=== PATIENT | male | born 1945 | race Caucasian/White ===

== ENCOUNTER → 2016-12-26 | Outpatient (CLI) | payer BC ==
[2016-12-26 11:06] LABS: Basophils # (auto) 0.1 uL; Basophils % (auto) 0.9 % (0.0-2.0); Eosinophils # (auto) 0.2 uL; Eosinophils % (auto) 3.4 % (0.0-7.0); Hematocrit 45.3 % (41.0-53.0); Lymphocytes # (auto) 1.2 uL; Lymphocytes % (auto) 18.6 % (10.0-50.0); Mean Corpuscular Hemoglobin 30.8 pg (28.0-32.0); Mean Corpuscular Hgb Conc. 33.2 g/dL (32.0-36.0); Mean Corpuscular Volume 92.8 fL (80.0-100.0); Mean Platelet Volume 8.5 fL (7.4-10.4); Monocytes # (auto) 0.5 uL; Monocytes % (auto) 7.9 % (0.0-12.0); Neutrophils # (auto) 4.3 uL; Neutrophils % (auto) 69.2 % (37.0-80.0); Platelet Count (auto) 205 10^3/uL (140-450); Red Cell Distribution Width 14.1 % (11.6-16.0); White Blood Cell 6.3 10^3/uL (4.4-10.8)
[2016-12-26 11:41] LABS: Albumin 3.4 g/dL (3.4-5.0); BUN/Creatinine Ratio 11.5; Bilirubin, Total 1.1 mg/dL (0.2-1.0); Calcium 8.5 mg/dL (8.5-10.1); Potassium 3.3 mmol/L (3.5-5.1); Total Protein 7.2 g/dL (6.4-8.2)
[2016-12-26 11:44] LABS: Urine Bilirubin Negative (Negative); Urine Blood Negative /uL (Negative); Urine Color Yellow (Yellow); Urine Glucose Normal (Normal); Urine Ketone Negative (Negative); Urine Nitrite Negative (Negative); Urine RBC <1 /hpf (0 - 3); Urine Squamous Epithelial Cell FEW /hpf (<5); Urine pH 6.5 (5.0-8.0)
== END | disposition home or self-care (01) ==
LOC: LAB 10:45
DX: I10 Essential (primary) hypertension (principal); Z12.11 Encounter for screening for malignant neoplasm of colon; F95.2 Tourette's disorder; R73.9 Hyperglycemia, unspecified
CPT/HCPCS: 36415; 80053; 80061; 81001; 82270; 83036; 84443; 85025; 85652

== ENCOUNTER → 2017-01-07 | Outpatient (CLI) | payer BC | END | disposition home or self-care (01) | LOC: XY 13:34 | PROVIDERS: ATTEND Internal Medicine | DX: I70.203 Unspecified atherosclerosis of native arteries of extremities, bilateral legs (principal); I77.1 Stricture of artery; R53.1 Weakness | CPT/HCPCS: 93923; 93925 ==

== ENCOUNTER → 2017-04-01 | Outpatient (CLI) | payer BC | END | disposition home or self-care (01) | LOC: LAB 10:50 | PROVIDERS: ATTEND Internal Medicine | DX: I73.9 Peripheral vascular disease, unspecified (principal) | CPT/HCPCS: 36415; 82565; 84520 ==

== ENCOUNTER → 2018-01-09 | Outpatient (CLI) | payer BC ==
[2018-01-09 12:56] LABS: Basophils # (auto) 0 uL; Basophils % (auto) 0.7 % (0.0-2.0); Eosinophils # (auto) 0.1 uL; Eosinophils % (auto) 2.4 % (0.0-7.0); Hematocrit 44.1 % (41.0-53.0); Hemoglobin 14.7 g/dL (13.5-17.5); Lymphocytes # (auto) 0.8 uL; Lymphocytes % (auto) 13.5 % (10.0-50.0); Mean Corpuscular Hemoglobin 30.9 pg (28.0-32.0); Mean Corpuscular Hgb Conc. 33.3 g/dL (32.0-36.0); Mean Corpuscular Volume 93.1 fL (80.0-100.0); Monocytes # (auto) 0.4 uL; Monocytes % (auto) 7.1 % (0.0-12.0); Neutrophils # (auto) 4.3 uL; Neutrophils % (auto) 76.3 % (37.0-80.0); Nucleated Red Blood Cells % 0.1 %; Platelet Count (auto) 183 10^3/uL (140-450); Red Blood Cells 4.74 10^6/uL (4.5-5.90); Red Cell Distribution Width 14.3 % (11.8-14.3); White Blood Cell 5.7 10^3/uL (4.4-10.8)
[2018-01-09 12:58] LABS: Urine Bacteria FEW /hpf (None Seen); Urine Blood Negative /uL (Negative); Urine Mucus FEW (None Seen); Urine Specific Gravity 1.025 (1.001-1.035); Urine WBC <1 /hpf (0 - 3)
[2018-01-09 13:39] LABS: Albumin 3.3 g/dL (3.4-5.0); BUN/Creatinine Ratio 8.3; Bilirubin, Total 0.6 mg/dL (0.2-1.0); Calcium 8.4 mg/dL (8.5-10.1); Potassium 3.2 mmol/L (3.5-5.1); Total Protein 6.8 g/dL (6.4-8.2)
== END | disposition home or self-care (01) ==
LOC: LAB 11:23
PROVIDERS: ATTEND Physician Assistant
DX: I12.9 Hypertensive chronic kidney disease with stage 1 through stage 4 chronic kidney disease, or unspecified chronic kidney disease (principal); E11.22 Type 2 diabetes mellitus with diabetic chronic kidney disease; N18.2 Chronic kidney disease, stage 2 (mild); E78.4 Other hyperlipidemia; F95.2 Tourette's disorder
CPT/HCPCS: 36415; 80053; 80061; 81001; 83036; 85025

== ENCOUNTER → 2019-01-05 | Outpatient (CLI) | payer BC ==
[~2019-01-05] MED LIST: ATOR10TA52 PO; CILO100T PO; DOXA4TAB40 PO; HYDR25TA4 PO; OXYC325T14 PO
[2019-01-05 16:15] VITALS: BP 130/88
--- NOTE | 2019-01-05 16:15 | NUR ---
ASSISTED PT. AND TO CLINIC FROM DR. SÁNCHEZ'S OFFICE FOR BILAT. LOWER EXT. UNNA BOOT APPLICATION PER MD ORDER. RECENT BILAT. PERIPHERAL ANGIOPLAST WITH STENT. PT. FULLY AMBULATORY WITH CONCOMITTANT HX OF MORBID OBESITY AND LUMBAR FRACTURE MANY YEARS AGO. PT. EDUCATION DIRECTED TO PT. AND SPOUSE. LOWER CALVES WITH MILDLY PITTING EDEMA AND DORSALIS PEDIS PULSES PALPATED.
--- NOTE | 2019-01-05 16:35 | NUR ---
EDE. DAYANAA BOOTS APPLIED PER MD ORDER. PT. TOLERATED PROCEDURES WELL, WITH INSTRUCTIONS TO KEEP LEGS ELEVATED AT HOME. 35-40 MM/HG LOW PRESSURE WRAPPING IN EFFECT. ABLE TO PUT SHOES BACK ON.
[2019-01-05 16:50] VITALS: BP 135/78
--- NOTE | 2019-01-05 16:50 | NUR ---
Discharge Instructions See e-MAR for any mediations given with this visit. Patient education given on disease process. Patient verbalized understanding. Previous labs reviewed. Patient discharged in stable condition with after care instructions and follow up appointment. PT. TO RTC ON FRIDAY AT 1PM FOR CHANGE OF UNNA BOOTS . PT. GIVEN CLINIC NUMBER IF ANY PROBLEMS OCCUR. AMBULATED TO POV WITH AT THIS TIME.
== END | disposition home or self-care (01) ==
LOC: CHF HDHVI 16:55
PROVIDERS: ATTEND Internal Medicine
DX: E66.01 Morbid (severe) obesity due to excess calories (principal); I73.9 Peripheral vascular disease, unspecified; I11.0 Hypertensive heart disease with heart failure; I50.9 Heart failure, unspecified
CPT/HCPCS: G0463

== ENCOUNTER → 2019-01-08 | Outpatient (CLI) | payer BC ==
[2019-01-08 12:55] VITALS: BP 120/58
[2019-01-08 13:20] VITALS: BP 130/69
--- NOTE | 2019-01-08 13:20 | NUR ---
[facility] CLINIC Discharge Instructions See e-MAR for any mediations given with this visit. Patient education given on disease process. Patient verbalized understanding. Previous labs reviewed. Patient discharged in stable condition with after care instructions and follow up appointment ON FRIDAY. NOTE BLE FAVIAN BOOTS APPLIED.
== END | disposition home or self-care (01) ==
LOC: CHF HDHVI 12:53
PROVIDERS: ATTEND Internal Medicine Cardiovascular Disease
DX: I87.2 Venous insufficiency (chronic) (peripheral) (principal); R60.0 Localized edema
CPT/HCPCS: G0463

== ENCOUNTER → 2019-01-11 | Outpatient (CLI) | payer BC ==
[2019-01-11 12:57] VITALS: BP 114/54
--- NOTE | 2019-01-11 12:57 | NUR ---
CHF PT ARRIVED AT CHF CLINIC FOR BILATERAL UNNA BOOT WRAPS. PT A/O X 3 V/S OBTAINED
--- NOTE | 2019-01-11 13:15 | NUR ---
Wound Care Wound care provided per MD order. Patient tolerated well and verbalized dressing care instructions. Follow up in clinic as directed. See e-MAR for medications given during this visit. BILATERAL UNNA BOOTS APPLIED
--- NOTE | 2019-01-11 13:35 | NUR ---
Discharge Instructions See e-MAR for any mediations given with this visit. Patient education given on disease process. Patient verbalized understanding. Previous labs reviewed. Patient discharged in stable condition with after care instructions and follow up appointment.
== END | disposition home or self-care (01) ==
LOC: CHF HDHVI 12:58
PROVIDERS: ATTEND Internal Medicine Cardiovascular Disease
DX: R60.0 Localized edema (principal); I11.0 Hypertensive heart disease with heart failure; I50.9 Heart failure, unspecified
CPT/HCPCS: G0463

== ENCOUNTER → 2019-01-15 | Outpatient (CLI) | payer BC ==
[2019-01-15 13:00] VITALS: BP 109/61
[2019-01-15 13:30] VITALS: BP 117/74
--- NOTE | 2019-01-15 13:30 | NUR ---
CHF CLINIC Discharge Instructions See e-MAR for any mediations given with this visit. Patient education given on disease process. Patient verbalized understanding. Previous labs reviewed. Patient discharged in stable condition with after care instructions and follow up appointment on Friday. Note Bilat edgar boots applied to lower extremities
== END | disposition home or self-care (01) ==
LOC: CHF HDHVI 12:54
PROVIDERS: ATTEND Internal Medicine Cardiovascular Disease
DX: I73.9 Peripheral vascular disease, unspecified (principal)
CPT/HCPCS: G0463

== ENCOUNTER → 2019-01-18 | Outpatient (CLI) | payer BC ==
[2019-01-18 13:00] VITALS: BP 111/62
[2019-01-18 13:25] VITALS: BP_SYST 110; BP_SYST 112; BP_DIAS 63
--- NOTE | 2019-01-18 13:25 | NUR ---
FAVIAN BOOTS APPLIED BILATERALLY. IN ATTENDANCE. TOLERATED WELL. Discharge Instructions See e-MAR for any mediations given with this visit. Patient education given on disease process. Patient verbalized understanding. Previous labs reviewed. Patient discharged in stable condition with after care instructions and follow up appointment.
== END | disposition home or self-care (01) ==
LOC: CHF HDHVI 13:06
PROVIDERS: ATTEND Internal Medicine
DX: E87.70 Fluid overload, unspecified (principal)
CPT/HCPCS: G0463

== ENCOUNTER → 2019-01-22 | Outpatient (CLI) | payer BC ==
[2019-01-22 13:30] VITALS: BP 100/60
[2019-01-22 13:50] VITALS: BP 108/56
--- NOTE | 2019-01-22 13:50 | NUR ---
IN TO CLINIC FOR WOUND CARE TO BILATERAL LEGS. FAVIAN BOOTS REMOVED AND THEN REAPPLIED. IN ATTENDANCE. WITHOUT DISTRESS OR DISCOMFORT. VS WNL. DISCHARGED TO CARE OF .
== END | disposition home or self-care (01) ==
LOC: CHF HDHVI 12:55
PROVIDERS: ATTEND Internal Medicine Cardiovascular Disease
DX: I89.0 Lymphedema, not elsewhere classified (principal); E87.70 Fluid overload, unspecified
CPT/HCPCS: G0463

== ENCOUNTER → 2019-01-26 | Outpatient (CLI) | payer BC ==
[2019-01-26 12:51] VITALS: BP 129/61
--- NOTE | 2019-01-26 12:51 | NUR ---
CHF PT ARRIVED TO [facility] FOR UNNA BOOT CHANGE. PT A/O X 3 V/S OBTAINED Addendum: 01/26/19 at 1435 by OSMAR MORALES RN RN TX PTS LEGS SLIGHTLY DISCOLORED, NO PAIN,
[2019-01-26 13:08] VITALS: BP 125/63
== END | disposition home or self-care (01) ==
LOC: CHF HDHVI 13:05
PROVIDERS: ATTEND Internal Medicine Cardiovascular Disease
DX: R60.0 Localized edema (principal)
CPT/HCPCS: G0463

== ENCOUNTER → 2019-01-29 | Outpatient (CLI) | payer BC ==
[2019-01-29 12:53] VITALS: BP 125/72
--- NOTE | 2019-01-29 13:20 | NUR ---
IN TO CLINIC FOR WOUND CARE TO BILATERAL LOWER EXTREMITIES. FAVIAN BOOTS REMOVED AND REAPPLIED. TOLERATED WELL. WITHOUT DISTRESS. IN ATTENDANCE. DISCHARGED TO SELF CARE.
== END | disposition home or self-care (01) ==
LOC: CHF HDHVI 13:20
PROVIDERS: ATTEND Internal Medicine Cardiovascular Disease
DX: I89.0 Lymphedema, not elsewhere classified (principal)
CPT/HCPCS: G0463

== ENCOUNTER → 2019-02-02 | Outpatient (CLI) | payer BC ==
[2019-02-02 13:50] VITALS: BP 111/87
[2019-02-02 14:25] VITALS: BP 111/87
--- NOTE | 2019-02-02 14:25 | NUR ---
FAVIAN BOOTS APPLIED BILATERALLY. SKIN CLEAN DRY AND INTACT. TOLERATED WELL. IN ATTENDANCE. DISCHARGED TO CARE OF IN NO DISTRESS OR DISCOMFORT AT TIME OF DISCHARGE.
== END | disposition home or self-care (01) ==
LOC: Rad HDHVI 12:50
PROVIDERS: ATTEND Internal Medicine
DX: I82.0 Budd-Chiari syndrome (principal); I11.0 Hypertensive heart disease with heart failure; I50.9 Heart failure, unspecified; I89.0 Lymphedema, not elsewhere classified
CPT/HCPCS: 93970; G0463

== ENCOUNTER → 2019-02-05 | Outpatient (CLI) | payer BC ==
[2019-02-05 13:00] VITALS: BP 118/63
--- NOTE | 2019-02-05 13:00 | NUR ---
CHF PT ARRIVED AT CHF CLINIC FOR UNNA BOOT CHANGE TO LOWER EXTREMETIES. V/S OBTAINED 0 DISTRESS
[2019-02-05 13:22] VITALS: BP 125/57
== END | disposition home or self-care (01) ==
LOC: CHF HDHVI 13:08
PROVIDERS: ATTEND Internal Medicine Cardiovascular Disease
DX: I73.9 Peripheral vascular disease, unspecified (principal)
CPT/HCPCS: G0463

== ENCOUNTER → 2019-02-09 | Outpatient (CLI) | payer BC ==
--- NOTE | 2019-02-09 14:40 | NUR ---
CHF PT ARRIVED TO THE CHF CLINIC FOR UNNA BOOT APPLICATION. A.O X 3 0 DISTRESS. V/S STABLE
[2019-02-09 14:49] VITALS: BP 136/59
[2019-02-09 15:09] VITALS: BP 120/64
--- NOTE | 2019-02-09 15:09 | NUR ---
Discharge Instructions See e-MAR for any mediations given with this visit. Patient education given on disease process. Patient verbalized understanding. Patient discharged in stable condition with after care instructions and follow up appointment.
== END | disposition home or self-care (01) ==
LOC: CHF HDHVI 15:24
PROVIDERS: ATTEND Internal Medicine Cardiovascular Disease
DX: I73.9 Peripheral vascular disease, unspecified (principal)
CPT/HCPCS: G0463

== ENCOUNTER → 2019-02-15 | Outpatient (CLI) | payer BC ==
--- NOTE | 2019-02-15 13:00 | NUR ---
CHF PT ARRIVED AT THE CHF CLINIC FOR WEEKLY UNNA BOOT THERAPY. PT A/O X 3 0 DISTRESS. V/S OBTAINED
--- NOTE | 2019-02-15 13:30 | NUR ---
IV insertion IV access obtained, via clean sterile technique by inserting 22 gauge catheter at after attempt(s). IV secured properly. No trauma to site. Patient tolerated procedure well. Addendum: 02/15/19 at 1435 by OSMAR MORALES RN RN NC WRONG PATIENT
[2019-02-15 14:30] VITALS: BP 112/70
[2019-02-15 16:15] LABS: Basophils # (auto) 0 uL; Basophils % (auto) 0.9 % (0.0-2.0); Eosinophils # (auto) 0.2 uL; Hematocrit 44.6 % (41.0-53.0); Hemoglobin 14.6 g/dL (13.5-17.5); Lymphocytes # (auto) 0.9 uL; Lymphocytes % (auto) 17.1 % (10.0-50.0); Mean Corpuscular Hemoglobin 30.4 pg (28.0-32.0); Mean Corpuscular Hgb Conc. 32.8 g/dL (32.0-36.0); Mean Corpuscular Volume 92.7 fL (80.0-100.0); Monocytes # (auto) 0.5 uL; Monocytes % (auto) 9.3 % (0.0-12.0); Neutrophils # (auto) 3.7 uL; Neutrophils % (auto) 69.7 % (37.0-80.0); Platelet Count (auto) 158 10^3/uL (140-450); Red Blood Cells 4.81 10^6/uL (4.5-5.90); White Blood Cell 5.4 10^3/uL (4.4-10.8)
[2019-02-15 16:32] LABS: Albumin 3.4 g/dL (3.4-5.0); Calcium 8.3 mg/dL (8.5-10.1); Magnesium 2.3 mg/dL (1.6-2.6); Potassium 3.9 mmol/L (3.5-5.1)
[2019-02-15 16:34] LABS: BUN/Creatinine Ratio 15.8
[2019-02-15 16:37] LABS: Bilirubin, Total 0.9 mg/dL (0.2-1.0)
== END | disposition home or self-care (01) ==
LOC: CHF HDHVI 13:09
PROVIDERS: ATTEND Internal Medicine Cardiovascular Disease
DX: I11.0 Hypertensive heart disease with heart failure (principal); I50.9 Heart failure, unspecified; E83.40 Disorders of magnesium metabolism, unspecified; D64.9 Anemia, unspecified; I73.9 Peripheral vascular disease, unspecified
CPT/HCPCS: 36415; 80053; 83735; 83880; 85025; G0463

== ENCOUNTER → 2019-02-19 | Outpatient (CLI) | payer BC ==
[2019-02-19 13:15] VITALS: BP 118/85
[2019-02-19 13:47] VITALS: BP 115/66
--- NOTE | 2019-02-19 13:47 | NUR ---
IN FOR FAVIAN BOOT APPLICATION TO BILATERAL LEGS.
== END | disposition home or self-care (01) ==
LOC: CHF HDHVI 13:09
PROVIDERS: ATTEND Internal Medicine Cardiovascular Disease
DX: E87.70 Fluid overload, unspecified (principal)
CPT/HCPCS: G0463

== ENCOUNTER → 2019-02-23 | Outpatient (CLI) | payer BC ==
[2019-02-23 13:00] VITALS: BP 112/64
[2019-02-23 13:35] VITALS: BP 123/58
== END | disposition home or self-care (01) ==
LOC: CHF HDHVI 13:01
PROVIDERS: ATTEND Internal Medicine Cardiovascular Disease
DX: I25.10 Atherosclerotic heart disease of native coronary artery without angina pectoris (principal); I11.0 Hypertensive heart disease with heart failure; I50.31 Acute diastolic (congestive) heart failure; E87.70 Fluid overload, unspecified
CPT/HCPCS: G0463

== ENCOUNTER → 2019-02-26 | Outpatient (CLI) | payer BC ==
[2019-02-26 13:00] VITALS: BP 115/61
--- NOTE | 2019-02-26 13:33 | NUR ---
CHF FAVIAN BOOTS APPLIED BILATERALLY . IN ATTENDANCE . TOLERATED WELL. DISCHARGED TO SELF CARE IN NO DISTRESS.
[2019-02-26 13:35] VITALS: BP 102/67
== END | disposition home or self-care (01) ==
LOC: CHF HDHVI 13:01
PROVIDERS: ATTEND Internal Medicine Cardiovascular Disease
DX: I11.0 Hypertensive heart disease with heart failure (principal); I50.9 Heart failure, unspecified; E87.70 Fluid overload, unspecified
CPT/HCPCS: G0463

== ENCOUNTER → 2019-03-05 | Outpatient (CLI) | payer BC ==
[2019-03-05 13:00] VITALS: BP 105/62
[2019-03-05 13:57] VITALS: BP 100/57
--- NOTE | 2019-03-05 13:57 | NUR ---
CHF CLINIC Discharge Instructions See e-MAR for any mediations given with this visit. Patient education given on disease process. Patient verbalized understanding. Previous labs reviewed. Patient discharged in stable condition with after care instructions and follow up appointment. NOTE BILAT FAVIAN BOOTS APPLIED.
== END | disposition home or self-care (01) ==
LOC: CHF HDHVI 13:03
PROVIDERS: ATTEND Internal Medicine Cardiovascular Disease
DX: I87.2 Venous insufficiency (chronic) (peripheral) (principal)
CPT/HCPCS: G0463

== ENCOUNTER → 2019-03-12 | Outpatient (CLI) | payer BC ==
[~2019-03-12] MED LIST changes: +MVI in SODIUM CHLORIDE 0.9% 1,010 ML ONE; +MVI in SODIUM CHLORIDE 0.9% 500 ML IVB ONE
--- NOTE | 2019-03-12 12:10 | NUR ---
PT. TO CHF CLINIC FOR EVAL AND TX. PT. WITH C/O LOOSE STOOLS/DIARRHEA X 3 DAYS. PT. HAS HAD A 13 LB. WT. LOSS SINCE STARTING CLINIC. DENIES FEVER. MODIFIED ORDER FOR BANANA BAG RECEIVED WITH LAB ORDERS ALSO. ORDERS RECEIVED AND CARRIED OUT.
--- NOTE | 2019-03-12 12:40 | NUR ---
PT. STATES HE DOESN'T HAVE ENOUGH TIME FOR IV HYDRATION DUE TO ANOTHER MD APPT. MD ADVISED WITH LAB ORDERS AND SPECIFIC INSTRUCTIONS FOR P.O. HYDRATION WITH MODIFIED BRAT DIET EXPLAINED TO PT.
--- NOTE | 2019-03-12 13:00 | NUR ---
BILAT. UNNA BOOTS APPLIED PER MD INSTRUCTIONS, WITH GOOD PULSES PALPATED DISTALLY.PT TOLERATED PROCEDURE WELL.
--- NOTE | 2019-03-12 13:20 | NUR ---
LABS DRAWN AND SENT PER MD ORDER.
[2019-03-12 13:30] VITALS: BP 113/62
--- NOTE | 2019-03-12 13:31 | NUR ---
NOTE: UNNA BOOTS TO BILAT. LOWER EXT., CHF VISIT. BANANA BAG NOT ADMINISTERED AND WASTED.
[2019-03-12 15:56] LABS: BUN/Creatinine Ratio 10.8; Calcium 8.7 mg/dL (8.5-10.1); Potassium 3.4 mmol/L (3.5-5.1)
[2019-03-12 16:22] LABS: Basophils # (auto) 0 uL; Basophils % (auto) 0.9 % (0.0-2.0); Eosinophils # (auto) 0.1 uL; Eosinophils % (auto) 1.8 % (0.0-7.0); Hematocrit 46.3 % (41.0-53.0); Hemoglobin 15.4 g/dL (13.5-17.5); Lymphocytes # (auto) 0.7 uL; Lymphocytes % (auto) 12.6 % (10.0-50.0); Mean Corpuscular Hemoglobin 30.7 pg (28.0-32.0); Mean Corpuscular Hgb Conc. 33.3 g/dL (32.0-36.0); Mean Corpuscular Volume 92.2 fL (80.0-100.0); Monocytes # (auto) 0.4 uL; Monocytes % (auto) 7.3 % (0.0-12.0); Neutrophils # (auto) 4.2 uL; Neutrophils % (auto) 77.4 % (37.0-80.0); Platelet Count (auto) 162 10^3/uL (140-450); Red Blood Cells 5.02 10^6/uL (4.5-5.90); Red Cell Distribution Width 14.6 % (11.8-14.3); White Blood Cell 5.5 10^3/uL (4.4-10.8)
== END | disposition home or self-care (01) ==
LOC: CHF HDHVI 13:07
PROVIDERS: ATTEND Internal Medicine Cardiovascular Disease
DX: D64.9 Anemia, unspecified (principal); I11.0 Hypertensive heart disease with heart failure; I50.9 Heart failure, unspecified; E66.9 Obesity, unspecified; K52.9 Noninfective gastroenteritis and colitis, unspecified; I73.9 Peripheral vascular disease, unspecified
CPT/HCPCS: 36415; 80048; 85025; G0463; J3411; J3475

== ENCOUNTER → 2019-03-19 | Outpatient (CLI) | payer BC ==
[~2019-03-19] MED LIST changes: -DOXA4TAB40 PO; +DOXA4TAB5 PO; -MVI in SODIUM CHLORIDE 0.9% 1,010 ML ONE; -MVI in SODIUM CHLORIDE 0.9% 500 ML IVB ONE
[2019-03-19 13:00] VITALS: BP 113/62
[2019-03-19 13:42] VITALS: BP 109/64
--- NOTE | 2019-03-19 13:42 | NUR ---
IN TO CLINIC FOR FOLLOWUP WITH FAVIAN BOOTS TO BILATERAL LEGS. WITHOUT DISTRESS. AFFECT CHEERFUL AND COOPERATIVE. IN ATTENDANCE. FAVIAN BOOTS APPLIED AND TOLERATED WELL. DISCHARGED TO SELF CARE WITH IN ATTENDANCE.
== END | disposition home or self-care (01) ==
LOC: CHF HDHVI 13:07
PROVIDERS: ATTEND Internal Medicine Cardiovascular Disease
DX: E87.70 Fluid overload, unspecified (principal); I11.0 Hypertensive heart disease with heart failure; I50.9 Heart failure, unspecified
CPT/HCPCS: G0463

== ENCOUNTER → 2019-03-26 | Outpatient (CLI) | payer BC ==
[2019-03-26 13:00] VITALS: BP 126/69
[2019-03-26 13:30] VITALS: BP 124/67
--- NOTE | 2019-03-26 13:30 | NUR ---
CHF CLINIC Discharge Instructions See e-MAR for any mediations given with this visit. Patient education given on disease process. Patient verbalized understanding. Previous labs reviewed. Patient discharged in stable condition with after care instructions and follow up appointment. NOTE BILAT FAVIAN BOOTS APPLIED
== END | disposition home or self-care (01) ==
LOC: CHF HDHVI 12:59
PROVIDERS: ATTEND Internal Medicine
DX: I87.2 Venous insufficiency (chronic) (peripheral) (principal)
CPT/HCPCS: G0463

== ENCOUNTER → 2019-04-02 | Outpatient (CLI) | payer BC ==
[2019-04-02 13:00] VITALS: BP 129/66
--- NOTE | 2019-04-02 14:00 | NUR ---
IN FOR FAVIAN BOOTS TO BILATERAL LOWER EXTREMITIES. EDUCATION REGARDING DIET AND FLUID MANAGEMENT GIVEN BY QUINTIN VARGAS TO PT AND PATIENTS . PT VERBALIZES THAT HE IS ACTIVELY DIETING AND MANAGING HIS DIET INTAKE. IMPREGNATED GAUZE APPLIED TO BILATERAL LOWER EXTREMITIES AND THEN COVERED WITH COBAN AND STOCKINGNETTE. TOLERATED WELL. DISCHARGED TO SELF CARE WITH IN ATTENDANCE.
[2019-04-02 14:12] VITALS: BP 108/66
== END | disposition home or self-care (01) ==
LOC: CHF HDHVI 13:02
PROVIDERS: ATTEND Internal Medicine Cardiovascular Disease
DX: I11.0 Hypertensive heart disease with heart failure (principal); I50.31 Acute diastolic (congestive) heart failure; E87.70 Fluid overload, unspecified
CPT/HCPCS: G0463

== ENCOUNTER → 2019-04-13 | Outpatient (CLI) | payer BC ==
[2019-04-13 12:55] VITALS: BP 124/69
[2019-04-13 13:17] VITALS: BP 120/59
--- NOTE | 2019-04-13 13:17 | NUR ---
CHF CLINIC Discharge Instructions See e-MAR for any mediations given with this visit. Patient education given on disease process. Patient verbalized understanding. Previous labs reviewed. Patient discharged in stable condition with after care instructions and follow up appointment ON FRIDAY. NOTE EDE RICHARDSON APPLIED PRESCRIPTION FOR KEFLEX 500MG QID SENT ELECTRONICALLY
== END | disposition home or self-care (01) ==
LOC: CHF HDHVI 13:01
PROVIDERS: ATTEND Internal Medicine
DX: I87.2 Venous insufficiency (chronic) (peripheral) (principal); R60.9 Edema, unspecified
CPT/HCPCS: G0463

== ENCOUNTER → 2019-04-14 | Outpatient (CLI) | payer BC, MEDICARE ==
[2019-04-14 09:41] LABS: Basophils # (auto) 0.1 uL; Basophils % (auto) 1.3 % (0.0-2.0); Eosinophils # (auto) 0.2 uL; Eosinophils % (auto) 3.9 % (0.0-7.0); Hematocrit 45.2 % (41.0-53.0); Hemoglobin 14.9 g/dL (13.5-17.5); Lymphocytes # (auto) 1.7 uL; Lymphocytes % (auto) 29.1 % (10.0-50.0); Mean Corpuscular Hemoglobin 30.6 pg (28.0-32.0); Mean Corpuscular Volume 92.7 fL (80.0-100.0); Monocytes # (auto) 0.5 uL; Neutrophils # (auto) 3.3 uL; Neutrophils % (auto) 57.7 % (37.0-80.0); Nucleated Red Blood Cells % 0.3 %; Platelet Count (auto) 163 10^3/uL (140-450); Red Blood Cells 4.87 10^6/uL (4.5-5.90); Red Cell Distribution Width 14.9 % (11.8-14.3); White Blood Cell 5.8 10^3/uL (4.4-10.8)
[2019-04-14 10:03] LABS: Albumin 3.1 g/dL (3.4-5.0); BUN/Creatinine Ratio 11.1; Calcium 8.5 mg/dL (8.5-10.1); Potassium 3.8 mmol/L (3.5-5.1)
[2019-04-14 10:07] LABS: Bilirubin, Total 0.8 mg/dL (0.2-1.0); Total Protein 6.8 g/dL (6.4-8.2)
== END | disposition home or self-care (01) ==
LOC: LAB 09:13
PROVIDERS: ATTEND Physician Assistant
DX: Z12.5 Encounter for screening for malignant neoplasm of prostate (principal); I11.0 Hypertensive heart disease with heart failure; I50.9 Heart failure, unspecified; E78.5 Hyperlipidemia, unspecified; N40.0 Benign prostatic hyperplasia without lower urinary tract symptoms
CPT/HCPCS: 36415; 80053; 80061; 84153; 85025

== ENCOUNTER → 2019-04-16 | Outpatient (CLI) | payer BC, MEDICARE ==
[~2019-04-16] MED LIST changes: +BACITRACIN TOP OINT 1 UD PKG TOP ONE
[2019-04-16 12:59] VITALS: BP 114/65
[2019-04-16 13:45] VITALS: BP 121/66
== END | disposition home or self-care (01) ==
LOC: CHF HDHVI 13:07
PROVIDERS: ATTEND Internal Medicine Cardiovascular Disease
DX: R60.0 Localized edema (principal)
CPT/HCPCS: G0463

== ENCOUNTER → 2019-04-20 | Outpatient (CLI) | payer BC ==
[~2019-04-20] MED LIST changes: -BACITRACIN TOP OINT 1 UD PKG TOP ONE; +CYANOCOBALAMIN (B-12) 1000 MCG/1 ML VIAL IM ONE; +CYANOCOBALAMIN (B-12) 1000 MCG/1 ML VIAL ONE; +TESTOSTERONE CYPIONATE 200 MG/ML 1ML VIAL IM ONE
[2019-04-20 13:02] VITALS: BP 121/72
--- NOTE | 2019-04-20 13:57 | NUR ---
MEDICATIONS Discharge Instructions See e-MAR for any mediations given with this visit. Patient education given on disease process. Patient verbalized understanding. Previous labs reviewed. Patient discharged in stable condition with after care instructions and follow up appointment. MEDICATIONS VITAMIN B12 IM X 1 RIGHT DELTOID TESTOSTERONE IM RIGHT GLUTE
[2019-04-20 14:10] VITALS: BP 123/72
[2019-04-20 16:21] LABS: Basophils # (auto) 0.1 uL; Eosinophils # (auto) 0.1 uL; Eosinophils % (auto) 2.3 % (0.0-7.0); Hematocrit 44.2 % (41.0-53.0); Hemoglobin 14.6 g/dL (13.5-17.5); Lymphocytes # (auto) 0.8 uL; Lymphocytes % (auto) 14.5 % (10.0-50.0); Mean Corpuscular Hemoglobin 30.4 pg (28.0-32.0); Mean Corpuscular Volume 92.3 fL (80.0-100.0); Monocytes # (auto) 0.5 uL; Monocytes % (auto) 8.5 % (0.0-12.0); Neutrophils # (auto) 4.3 uL; Neutrophils % (auto) 73.7 % (37.0-80.0); Nucleated Red Blood Cells % 0.1 %; Platelet Count (auto) 167 10^3/uL (140-450); Red Blood Cells 4.78 10^6/uL (4.5-5.90); Red Cell Distribution Width 14.7 % (11.8-14.3); White Blood Cell 5.8 10^3/uL (4.4-10.8)
== END | disposition home or self-care (01) ==
LOC: CHF HDHVI 13:07
PROVIDERS: ATTEND Internal Medicine Cardiovascular Disease
DX: E29.1 Testicular hypofunction (principal); D64.9 Anemia, unspecified; R70.0 Elevated erythrocyte sedimentation rate; K90.9 Intestinal malabsorption, unspecified; I11.0 Hypertensive heart disease with heart failure; I50.30 Unspecified diastolic (congestive) heart failure; R53.83 Other fatigue; R60.9 Edema, unspecified; I89.0 Lymphedema, not elsewhere classified; E66.9 Obesity, unspecified; Z79.899 Other long term (current) drug therapy
CPT/HCPCS: 36415; 82306; 83036; 84403; 85025; 85652; 96372; G0463; J1071; J3420

== ENCOUNTER → 2019-04-23 | Outpatient (CLI) | payer BC ==
[~2019-04-23] MED LIST changes: -CYANOCOBALAMIN (B-12) 1000 MCG/1 ML VIAL IM ONE; -CYANOCOBALAMIN (B-12) 1000 MCG/1 ML VIAL ONE; -TESTOSTERONE CYPIONATE 200 MG/ML 1ML VIAL IM ONE
[2019-04-23 13:30] VITALS: BP 128/61
[2019-04-23 13:46] VITALS: BP 121/64
--- NOTE | 2019-04-23 13:46 | NUR ---
IN FOR FAVIAN BOOTS TO BILATERAL LEGS. APPLIED BY QUINTIN VARGAS AND TOLERATED WELL. PREVIOUS LABS REVIEWED BY EDWIN. FURTHER QUESTIONS DENIED. DISCHARGED TO SELF CARE IN NO DISTRESS OR DISCOMFORT.
== END | disposition home or self-care (01) ==
LOC: CHF HDHVI 13:08
PROVIDERS: ATTEND Internal Medicine Cardiovascular Disease
DX: I11.0 Hypertensive heart disease with heart failure (principal); I89.0 Lymphedema, not elsewhere classified
CPT/HCPCS: G0463

== ENCOUNTER → 2019-04-30 | Outpatient (CLI) | payer BC ==
[~2019-04-30] VITALS: Ht 30.5 cm; Wt 0.5 kg
[~2019-04-30] MED LIST changes: +FUROSEMIDE 40 MG/4 ML VIAL IV ONE; +FUROSEMIDE 40 MG/4 ML VIAL ONE; +POTASSIUM CHL 10 Meq TABLET PO ONE; +VANCOMYCIN 1GM/250ML 250 ML IV ONE
[2019-04-30 11:57] VITALS: BP 126/67
--- NOTE | 2019-04-30 11:57 | NUR ---
Patient in clinic for bilat edgar boots. Patient bilat lower legs red and warm. Dr Ramirez updated on patient status, new orders received as entered, prescription for Keflex QID 500mg X 10 days called into patient pharmacy.
--- NOTE | 2019-04-30 12:15 | NUR ---
IV insertion IV access obtained, via clean sterile technique by inserting 22 gauge catheter at RAC after 1 attempt(s). IV secured properly. No trauma to site. Patient tolerated procedure well. Blood drawn and labs sent.
--- NOTE | 2019-04-30 13:24 | NUR ---
IV removal IV DC'd with sterile technique, catheter fully intact. Pressure dressing applied to site. Patient tolerated procedure well.
[2019-04-30 13:25] VITALS: BP 115/66
--- NOTE | 2019-04-30 13:25 | NUR ---
CHF CLINIC Discharge Instructions See e-MAR for any mediations given with this visit. Patient education given on disease process. Patient verbalized understanding. Previous labs reviewed. Patient discharged in stable condition with after care instructions and follow up appointment. Note Vanco [id number] admin by Michelle STEPHENS Lasix IVP admin by Michelle STEPHENS Potassium PO admin by Michelle STEPHENS
[2019-04-30 15:15] LABS: Basophils # (auto) 0 uL; Basophils % (auto) 0.8 % (0.0-2.0); Eosinophils # (auto) 0.1 uL; Eosinophils % (auto) 2.8 % (0.0-7.0); Hematocrit 45.1 % (41.0-53.0); Hemoglobin 14.8 g/dL (13.5-17.5); Lymphocytes # (auto) 0.8 uL; Lymphocytes % (auto) 14.8 % (10.0-50.0); Mean Corpuscular Hemoglobin 30.7 pg (28.0-32.0); Mean Corpuscular Hgb Conc. 32.9 g/dL (32.0-36.0); Mean Corpuscular Volume 93.4 fL (80.0-100.0); Monocytes # (auto) 0.4 uL; Monocytes % (auto) 7.4 % (0.0-12.0); Neutrophils # (auto) 3.9 uL; Neutrophils % (auto) 74.2 % (37.0-80.0); Nucleated Red Blood Cells % 0.1 %; Platelet Count (auto) 168 10^3/uL (140-450); Red Blood Cells 4.83 10^6/uL (4.5-5.90); White Blood Cell 5.3 10^3/uL (4.4-10.8)
== END | disposition home or self-care (01) ==
LOC: CHF HDHVI 12:05
PROVIDERS: ATTEND Internal Medicine Cardiovascular Disease
DX: L03.90 Cellulitis, unspecified (principal); I11.0 Hypertensive heart disease with heart failure; I50.30 Unspecified diastolic (congestive) heart failure; D64.9 Anemia, unspecified; E78.5 Hyperlipidemia, unspecified; E66.9 Obesity, unspecified; Z79.899 Other long term (current) drug therapy
CPT/HCPCS: 36415; 85025; 96365; 96375; G0463; J1940; J3370

== ENCOUNTER → 2019-05-04 | Outpatient (CLI) | payer BC ==
[~2019-05-04] MED LIST changes: -FUROSEMIDE 40 MG/4 ML VIAL IV ONE; -FUROSEMIDE 40 MG/4 ML VIAL ONE; -POTASSIUM CHL 10 Meq TABLET PO ONE; -VANCOMYCIN 1GM/250ML 250 ML IV ONE
[2019-05-04 13:40] VITALS: BP 110/56
== END | disposition home or self-care (01) ==
LOC: CHF HDHVI 13:11
PROVIDERS: ATTEND Internal Medicine Cardiovascular Disease
DX: R60.0 Localized edema (principal); I11.0 Hypertensive heart disease with heart failure; I50.30 Unspecified diastolic (congestive) heart failure
CPT/HCPCS: G0463

== ENCOUNTER → 2019-05-07 | Outpatient (CLI) | payer BC ==
[2019-05-07 13:00] VITALS: BP 92/56
[2019-05-07 13:30] VITALS: BP 130/65
== END | disposition home or self-care (01) ==
LOC: CHF HDHVI 13:14
PROVIDERS: ATTEND Internal Medicine Cardiovascular Disease
DX: I87.2 Venous insufficiency (chronic) (peripheral) (principal); R60.0 Localized edema
CPT/HCPCS: G0463

== ENCOUNTER → 2019-05-21 | Outpatient (CLI) | payer BC ==
[2019-05-21 13:30] VITALS: BP_SYST 105; BP_SYST 107; BP_DIAS 60
--- NOTE | 2019-05-21 13:30 | NUR ---
IN TO CLINIC FOR FAVIAN BOOT APPLICATION. FAVIAN BOOTS APPLIED BILATERALLY . TOLERATED WELL. DISCHARGED TO CARE OF WITHOUT DISTRESS OR DISCOMFORT.
== END | disposition home or self-care (01) ==
LOC: CHF HDHVI 13:21
PROVIDERS: ATTEND Internal Medicine
DX: E87.70 Fluid overload, unspecified (principal)
CPT/HCPCS: G0463

== ENCOUNTER → 2019-05-28 | Outpatient (CLI) | payer BC ==
[2019-05-28 13:00] VITALS: BP 142/70
[2019-05-28 13:15] VITALS: BP 127/64
--- NOTE | 2019-05-28 13:15 | NUR ---
CHF CLINIC Discharge Instructions See e-MAR for any mediations given with this visit. Patient education given on disease process. Patient verbalized understanding. Previous labs reviewed. Patient discharged in stable condition with after care instructions and follow up appointment next Friday. Note Racquel tse applied
== END | disposition home or self-care (01) ==
LOC: CHF HDHVI 13:17
PROVIDERS: ATTEND Internal Medicine
DX: R60.0 Localized edema (principal)
CPT/HCPCS: G0463

== ENCOUNTER → 2019-06-04 | Outpatient (CLI) | payer BC ==
[2019-06-04 13:00] VITALS: BP 119/58
[2019-06-04 13:20] VITALS: BP 108/62
--- NOTE | 2019-06-04 13:21 | NUR ---
IN FOR FAVIAN BOOT APPLICATION BILATERALLY. SKIN CLEAN AND INTACT THROUGHOUT, ALTHOUGH CALVES REMAIN REDDENNED . NO ERTHEMA NOTED AND NO SIGNS OF INFECTION. PERSISTENT REDNESS ON CALVES ARE PTS NORMAL AND HE IS WITHOUT ANY PAIN. FAVIAN BOOT BIN APPLIED AND THEN COBAN AND THEN STOCKINGNETTE. TOLERATED WELL. DISCHARGED TO SELF CARE IN NO DISTRESS OR DISCOMFORT WITH IN ATTENDANCE.
== END | disposition home or self-care (01) ==
LOC: CHF HDHVI 12:55
PROVIDERS: ATTEND Internal Medicine
DX: E87.70 Fluid overload, unspecified (principal); I11.0 Hypertensive heart disease with heart failure; I50.9 Heart failure, unspecified; I87.2 Venous insufficiency (chronic) (peripheral)
CPT/HCPCS: G0463

== ENCOUNTER → 2019-06-11 | Outpatient (CLI) | payer BC ==
[2019-06-11 12:55] VITALS: BP 109/61
[2019-06-11 13:10] VITALS: BP 108/66
== END | disposition home or self-care (01) ==
LOC: CHF HDHVI 12:47
PROVIDERS: ATTEND Internal Medicine
DX: I87.2 Venous insufficiency (chronic) (peripheral) (principal); E87.70 Fluid overload, unspecified
CPT/HCPCS: G0463

== ENCOUNTER → 2019-06-18 | Outpatient (CLI) | payer BC ==
[2019-06-18 12:45] VITALS: BP 131/62
[2019-06-18 13:30] VITALS: BP 115/65
--- NOTE | 2019-06-18 13:30 | NUR ---
IN TO CLINIC WITH IN ATTENDANCE . FAVIAN BOOTS APPLIED TO CLEAN AND INTACT SKIN ON BILATERAL LOWER EXTREMITIES. COVERED WITH COBAN AND STOCKINETTE. TOLERATED WELL. DISCHARGED TO SELF CARE IN NO DISTRESS OR DISCOMFORT.
== END | disposition home or self-care (01) ==
LOC: CHF HDHVI 12:41
PROVIDERS: ATTEND Internal Medicine
DX: I11.0 Hypertensive heart disease with heart failure (principal); I50.9 Heart failure, unspecified; R60.0 Localized edema; E87.70 Fluid overload, unspecified
CPT/HCPCS: G0463

== ENCOUNTER → 2019-06-25 | Outpatient (CLI) | payer BC ==
[2019-06-25 13:00] VITALS: BP 125/62
[2019-06-25 13:25] VITALS: BP 114/62
== END | disposition home or self-care (01) ==
LOC: CHF HDHVI 12:46
PROVIDERS: ATTEND Internal Medicine Cardiovascular Disease
DX: R60.0 Localized edema (principal)
CPT/HCPCS: G0463

== ENCOUNTER → 2019-07-02 | Outpatient (CLI) | payer BC ==
[2019-07-02 12:50] VITALS: BP 119/63
[2019-07-02 13:12] VITALS: BP 121/60
--- NOTE | 2019-07-02 13:12 | NUR ---
CHF Clinic Discharge Instructions See e-MAR for any mediations given with this visit. Patient education given on disease process. Patient verbalized understanding. Previous labs reviewed. Patient discharged in stable condition with after care instructions and follow up appointment one week. Note Bilat edgar boots applied.
== END | disposition home or self-care (01) ==
LOC: CHF HDHVI 12:58
PROVIDERS: ATTEND Internal Medicine Cardiovascular Disease
DX: I87.2 Venous insufficiency (chronic) (peripheral) (principal)
CPT/HCPCS: G0463

== ENCOUNTER → 2019-07-09 | Outpatient (CLI) | payer BC ==
[2019-07-09 12:40] VITALS: BP 132/71
[2019-07-09 13:00] VITALS: BP 114/62
== END | disposition home or self-care (01) ==
LOC: CHF HDHVI 12:41
PROVIDERS: ATTEND Internal Medicine Cardiovascular Disease
DX: I87.2 Venous insufficiency (chronic) (peripheral) (principal); R60.0 Localized edema; E78.5 Hyperlipidemia, unspecified; I11.0 Hypertensive heart disease with heart failure; I50.31 Acute diastolic (congestive) heart failure
CPT/HCPCS: G0463

== ENCOUNTER → 2019-07-16 | Outpatient (CLI) | payer BC ==
[2019-07-16 13:08] VITALS: BP 100/61
--- NOTE | 2019-07-16 13:08 | NUR ---
CHF CLINIC Discharge Instructions See e-MAR for any mediations given with this visit. Patient education given on disease process. Patient verbalized understanding. Previous labs reviewed. Patient discharged in stable condition with after care instructions and follow up appointment. NOTE BLE FAVIAN BOOTS APPLIED.
== END | disposition home or self-care (01) ==
LOC: CHF HDHVI 12:59
PROVIDERS: ATTEND Internal Medicine Cardiovascular Disease
DX: Z00.00 Encounter for general adult medical examination without abnormal findings (principal); I87.2 Venous insufficiency (chronic) (peripheral); R60.0 Localized edema; E87.70 Fluid overload, unspecified; Z87.891 Personal history of nicotine dependence
CPT/HCPCS: G0463

== ENCOUNTER → 2019-07-28 | Outpatient (CLI) | payer BC ==
[2019-07-28 12:00] VITALS: BP 90/60
[2019-07-28 12:18] VITALS: BP 101/58
--- NOTE | 2019-07-28 12:18 | NUR ---
CHF CLINIC Discharge Instructions See e-MAR for any mediations given with this visit. Patient education given on disease process. Patient verbalized understanding. Previous labs reviewed. Patient discharged in stable condition with after care instructions and follow up appointment. RIGOBERTO RICHARDSON
== END | disposition home or self-care (01) ==
LOC: CHF HDHVI 12:02
PROVIDERS: ATTEND Internal Medicine
DX: I87.2 Venous insufficiency (chronic) (peripheral) (principal); L03.116 Cellulitis of left lower limb; L03.115 Cellulitis of right lower limb
CPT/HCPCS: G0463

== ENCOUNTER → 2019-08-06 | Outpatient (CLI) | payer BC ==
[2019-08-06 12:40] VITALS: BP 107/61
[2019-08-06 13:41] VITALS: BP 105/60
--- NOTE | 2019-08-06 13:41 | NUR ---
CHF CLINIC Discharge Instructions See e-MAR for any mediations given with this visit. Patient education given on disease process. Patient verbalized understanding. Previous labs reviewed. Patient discharged in stable condition with after care instructions and follow up appointment. NOTE KYLEE RICHARDSON APPLIED BY QUINTIN VARGAS
[2019-08-06 16:14] LABS: Potassium 3.9 mmol/L (3.5-5.1)
[2019-08-06 16:15] LABS: Basophils # (auto) 0 uL; Basophils % (auto) 0.5 % (0.0-2.0); Eosinophils # (auto) 0.1 uL; Eosinophils % (auto) 1.5 % (0.0-7.0); Hematocrit 46.1 % (41.0-53.0); Hemoglobin 15.5 g/dL (13.5-17.5); Lymphocytes # (auto) 0.9 uL; Lymphocytes % (auto) 15.2 % (10.0-50.0); Mean Corpuscular Hemoglobin 31.1 pg (28.0-32.0); Mean Corpuscular Hgb Conc. 33.6 g/dL (32.0-36.0); Mean Corpuscular Volume 92.6 fL (80.0-100.0); Monocytes # (auto) 0.3 uL; Monocytes % (auto) 5.5 % (0.0-12.0); Neutrophils # (auto) 4.8 uL; Neutrophils % (auto) 77.3 % (37.0-80.0); Platelet Count (auto) 167 10^3/uL (140-450); Red Blood Cells 4.98 10^6/uL (4.5-5.90); Red Cell Distribution Width 14.9 % (11.8-14.3); White Blood Cell 6.2 10^3/uL (4.4-10.8)
[2019-08-06 16:19] LABS: Albumin 3.4 g/dL (3.4-5.0); Bilirubin, Total 0.8 mg/dL (0.2-1.0); Calcium 8.6 mg/dL (8.5-10.1); Magnesium 2.2 mg/dL (1.6-2.6)
== END | disposition home or self-care (01) ==
LOC: CHF HDHVI 12:43
PROVIDERS: ATTEND Internal Medicine
DX: I50.9 Heart failure, unspecified (principal); K90.9 Intestinal malabsorption, unspecified
CPT/HCPCS: 36415; 80053; 82306; 83735; 83880; 85025; G0463

== ENCOUNTER → 2020-04-24 | Outpatient (CLI) | payer BC ==
[2020-04-24 08:53] LABS: Basophils # (auto) 0.1 10 ^3/uL (0-0.2); Basophils % (auto) 1.4 % (0.0-2.0); Eosinophils # (auto) 0.2 10 ^3/uL (0-0.8); Eosinophils % (auto) 4.5 % (0.0-7.0); Hematocrit 42.4 % (41.0-53.0); Hemoglobin 14.1 g/dL (13.5-17.5); Lymphocytes % (auto) 18.8 % (10.0-50.0); Mean Corpuscular Hemoglobin 30.8 pg (28.0-32.0); Mean Corpuscular Hgb Conc. 33.2 g/dL (32.0-36.0); Mean Corpuscular Volume 92.8 fL (80.0-100.0); Monocytes # (auto) 0.5 10 ^3/uL (0-1.3); Monocytes % (auto) 9.1 % (0.0-12.0); Neutrophils # (auto) 3.6 10 ^3/uL (1.6-8.6); Neutrophils % (auto) 66.2 % (37.0-80.0); Platelet Count (auto) 173 10^3/uL (140-450); Red Blood Cells 4.56 10^6/uL (4.5-5.90); Red Cell Distribution Width 13.8 % (11.8-14.3); White Blood Cell 5.4 10^3/uL (4.4-10.8)
[2020-04-24 09:17] LABS: Albumin 3.1 g/dL (3.4-5.0); Calcium 8.6 mg/dL (8.5-10.1); Potassium 3.3 mmol/L (3.5-5.1)
[2020-04-24 09:22] LABS: BUN/Creatinine Ratio 9.2; Bilirubin, Total 0.9 mg/dL (0.2-1.0); Total Protein 6.5 g/dL (6.4-8.2)
== END | disposition home or self-care (01) ==
LOC: LAB 08:33
PROVIDERS: ATTEND Physician Assistant
DX: I12.9 Hypertensive chronic kidney disease with stage 1 through stage 4 chronic kidney disease, or unspecified chronic kidney disease (principal); N18.2 Chronic kidney disease, stage 2 (mild); N40.0 Benign prostatic hyperplasia without lower urinary tract symptoms; G62.9 Polyneuropathy, unspecified; J44.9 Chronic obstructive pulmonary disease, unspecified
CPT/HCPCS: 36415; 80053; 80061; 84153; 85025

== ENCOUNTER → 2021-07-24 | Outpatient (CLI) | payer BC ==
[~2021-07-24] MED LIST changes: -DOXA4TAB5 PO; +DOXA4TAB6 PO
[2021-07-24 09:53] LABS: Basophils # (auto) 0 10 ^3/uL (0-0.2); Basophils % (auto) 0.6 % (0.0-2.0); Eosinophils # (auto) 0.2 10 ^3/uL (0-0.8); Eosinophils % (auto) 3.6 % (0.0-7.0); Hematocrit 42.2 % (41.0-53.0); Hemoglobin 14.1 g/dL (13.5-17.5); Lymphocytes % (auto) 17.1 % (10.0-50.0); Mean Corpuscular Hemoglobin 31.1 pg (28.0-32.0); Mean Corpuscular Hgb Conc. 33.4 g/dL (32.0-36.0); Mean Corpuscular Volume 93.2 fL (80.0-100.0); Monocytes # (auto) 0.5 10 ^3/uL (0-1.3); Monocytes % (auto) 9.4 % (0.0-12.0); Neutrophils # (auto) 3.9 10 ^3/uL (1.6-8.6); Neutrophils % (auto) 69.3 % (37.0-80.0); Red Blood Cells 4.53 10^6/uL (4.5-5.90); White Blood Cell 5.6 10^3/uL (4.4-10.8)
[2021-07-24 10:14] LABS: Potassium 3.6 mmol/L (3.5-5.1)
[2021-07-24 10:23] LABS: BUN/Creatinine Ratio 10.5; Bilirubin, Total 1.2 mg/dL (0.2-1.0); Calcium 8.4 mg/dL (8.5-10.1); Total Protein 6.3 g/dL (6.4-8.2)
== END | disposition home or self-care (01) ==
LOC: LAB 09:18
PROVIDERS: ATTEND Nurse Practitioner Family
DX: E78.49 Other hyperlipidemia (principal); E87.6 Hypokalemia; I10 Essential (primary) hypertension; E66.01 Morbid (severe) obesity due to excess calories; N40.0 Benign prostatic hyperplasia without lower urinary tract symptoms; J44.9 Chronic obstructive pulmonary disease, unspecified
CPT/HCPCS: 36415; 80053; 80061; 82043; 83036; 84153; 85025

== ENCOUNTER → 2021-11-30 | Outpatient (CLI) | payer BC ==
[2021-11-30 13:51] LABS: Calcium 8.6 mg/dL (8.5-10.1); Potassium 3.7 mmol/L (3.5-5.1)
[2021-11-30 13:55] LABS: Albumin 2.9 g/dL (3.4-5.0)
[2021-11-30 13:58] LABS: Bilirubin, Total 0.7 mg/dL (0.2-1.0)
== END | disposition home or self-care (01) ==
LOC: LAB 12:42
PROVIDERS: ATTEND Nurse Practitioner Family
DX: I73.9 Peripheral vascular disease, unspecified (principal)
CPT/HCPCS: 36415; 80053

== ENCOUNTER 2022-04-22 09:24 | Emergency (ER) | payer BC ==
[~2022-04-22] VITALS: Ht 175.3 cm; Wt 97.7 kg
[2022-04-22 10:20] LABS: Basophils # (auto) 0.1 10 ^3/uL (0-0.2); Basophils % (auto) 0.9 % (0.0-2.0); Eosinophils # (auto) 0.2 10 ^3/uL (0-0.8); Eosinophils % (auto) 2.7 % (0.0-7.0); Hematocrit 45.3 % (41.0-53.0); Hemoglobin 14.7 g/dL (13.5-17.5); Lymphocytes # (auto) 0.8 10 ^3/uL (0.4-5.4); Lymphocytes % (auto) 13.3 % (10.0-50.0); Mean Corpuscular Hemoglobin 29.7 pg (28.0-32.0); Mean Corpuscular Hgb Conc. 32.5 g/dL (32.0-36.0); Mean Corpuscular Volume 91.4 fL (80.0-100.0); Monocytes # (auto) 0.5 10 ^3/uL (0-1.3); Monocytes % (auto) 8.5 % (0.0-12.0); Neutrophils # (auto) 4.4 10 ^3/uL (1.6-8.6); Neutrophils % (auto) 74.6 % (37.0-80.0); Nucleated Red Blood Cells % 0.1 %; Red Blood Cells 4.96 10^6/uL (4.5-5.90); Red Cell Distribution Width 13.9 % (11.8-14.3); White Blood Cell 5.9 10^3/uL (4.4-10.8)
[2022-04-22 11:34] LABS: Urine Bacteria NONE SEEN /hpf (None Seen); Urine Blood Negative /uL (Negative); Urine Hyaline Cast FEW /lpf (0 - 2); Urine Mucus FEW (None Seen); Urine Specific Gravity 1.023 (1.001-1.035); Urine WBC 2 /hpf (0 - 3)
[2022-04-22 13:39] LABS: Albumin 3.3 g/dL (3.4-5.0); Calcium 8.7 mg/dL (8.5-10.1); Potassium 3.8 mmol/L (3.5-5.1)
[2022-04-22 13:42] LABS: BUN/Creatinine Ratio 9.5; Bilirubin, Total 1.1 mg/dL (0.2-1.0); Total Protein 7.2 g/dL (6.4-8.2)
[2022-04-22 14:30] VITALS: BP 134/62
== END 2022-04-22 14:34 | disposition home or self-care (01) ==
LOC: ER 09:24
DX: R10.84 Generalized abdominal pain (principal); I50.9 Heart failure, unspecified; E78.5 Hyperlipidemia, unspecified; Z86.73 Personal history of transient ischemic attack (TIA), and cerebral infarction without residual deficits
CPT/HCPCS: 36415; 74176; 80053; 81001; 85025

== ENCOUNTER → 2022-08-05 | Outpatient (CLI) | payer BC ==
[2022-08-05 10:40] LABS: Albumin 3.2 g/dL (3.4-5.0); Basophils # (auto) 0 10 ^3/uL (0-0.2); Basophils % (auto) 0.7 % (0.0-2.0); Calcium 8.9 mg/dL (8.5-10.1); Eosinophils # (auto) 0.2 10 ^3/uL (0-0.8); Eosinophils % (auto) 3.5 % (0.0-7.0); Hematocrit 43.9 % (41.0-53.0); Hemoglobin 14.8 g/dL (13.5-17.5); Lymphocytes # (auto) 0.7 10 ^3/uL (0.4-5.4); Lymphocytes % (auto) 14.2 % (10.0-50.0); Mean Corpuscular Hemoglobin 30.7 pg (28.0-32.0); Mean Corpuscular Hgb Conc. 33.6 g/dL (32.0-36.0); Mean Corpuscular Volume 91.1 fL (80.0-100.0); Monocytes # (auto) 0.4 10 ^3/uL (0-1.3); Monocytes % (auto) 8.2 % (0.0-12.0); Neutrophils # (auto) 3.7 10 ^3/uL (1.6-8.6); Neutrophils % (auto) 73.4 % (37.0-80.0); Nucleated Red Blood Cells % 0.1 %; Potassium 3.3 mmol/L (3.5-5.1); Red Blood Cells 4.82 10^6/uL (4.5-5.90); Red Cell Distribution Width 14.6 % (11.8-14.3); White Blood Cell 5.1 10^3/uL (4.4-10.8)
[2022-08-05 10:53] LABS: BUN/Creatinine Ratio 7.6; Bilirubin, Total 1.4 mg/dL (0.2-1.0); Total Protein 6.7 g/dL (6.4-8.2)
== END | disposition home or self-care (01) ==
LOC: LAB 09:47
PROVIDERS: ATTEND Nurse Practitioner Family
DX: Z00.00 Encounter for general adult medical examination without abnormal findings (principal); I73.9 Peripheral vascular disease, unspecified; N40.0 Benign prostatic hyperplasia without lower urinary tract symptoms; I11.0 Hypertensive heart disease with heart failure; I50.9 Heart failure, unspecified
CPT/HCPCS: 36415; 80053; 80061; 84153; 85025

== ENCOUNTER → 2022-11-18 | Outpatient (CLI) | payer OTHER, MEDICARE | END | disposition home or self-care (01) | LOC: LAB 10:55 | PROVIDERS: ATTEND Internal Medicine | DX: Z01.812 Encounter for preprocedural laboratory examination (principal); N18.2 Chronic kidney disease, stage 2 (mild) | CPT/HCPCS: 36415; 82565; 84520 ==

== ENCOUNTER → 2023-10-27 | Outpatient (CLI) | payer BC, MEDICARE, OTHER ==
[~2023-10-27] MED LIST changes: -DOXA4TAB6 PO; +DOXA4TAB83 PO
== END | disposition home or self-care (01) ==
LOC: XYW 09:53
PROVIDERS: ATTEND Internal Medicine
DX: I65.21 Occlusion and stenosis of right carotid artery (principal); R09.89 Other specified symptoms and signs involving the circulatory and respiratory systems
CPT/HCPCS: 93886

== ENCOUNTER 2023-11-09 10:15 | Inpatient (IN) | payer OTHER ==
[~2023-11-09] VITALS: Ht 172.7 cm; Wt 86.0 kg
[2023-11-09 10:35] LABS: Basophils # (auto) 0 10 ^3/uL (0-0.2); Basophils % (auto) 0.5 % (0.0-2.0); Eosinophils # (auto) 0 10 ^3/uL (0-0.8); Hematocrit 44.9 % (41.0-53.0); Hemoglobin 14.8 g/dL (13.5-17.5); Lymphocytes # (auto) 0.7 10 ^3/uL (0.4-5.4); Lymphocytes % (auto) 7.8 % (10.0-50.0); Mean Corpuscular Hemoglobin 30.4 pg (28.0-32.0); Mean Corpuscular Hgb Conc. 32.9 g/dL (32.0-36.0); Mean Corpuscular Volume 92.5 fL (80.0-100.0); Monocytes # (auto) 0.5 10 ^3/uL (0-1.3); Monocytes % (auto) 5.4 % (0.0-12.0); Neutrophils # (auto) 7.3 10 ^3/uL (1.6-8.6); Neutrophils % (auto) 86.3 % (37.0-80.0); Red Blood Cells 4.85 10^6/uL (4.5-5.90); Red Cell Distribution Width 14.4 % (11.8-14.3); White Blood Cell 8.5 10^3/uL (4.4-10.8)
[2023-11-09 10:48] LABS: Alanine Aminotransferase 14 U/L (7-40); Albumin 4.2 g/dL (3.2-4.8); Alkaline Phosphatase 61 U/L (46-116); Anion Gap 9 (5-15); Aspartate Aminotransferase 22 U/L (13-40); BUN/Creatinine Ratio 14.1 (10.0-20.0); Blood Urea Nitrogen 13 mg/dL (9-23); Calcium 9.5 mg/dL (8.7-10.4); Carbon Dioxide 29 mmol/L (20-30); Chloride 100 mmol/L (98-107); Glucose 98 mg/dL (74-106); Magnesium 1.9 mg/dL (1.6-2.6); Potassium 3.6 mmol/L (3.5-5.1); Sodium 138 mmol/L (136-145)
[2023-11-09 10:49] LABS: Bilirubin, Total 1.3 mg/dL (0.2-1.0); Total Protein 6.8 g/dL (5.7-8.2)
[2023-11-09 10:52] LABS: INR 1.13 (0.9-1.15); Partial Thromboplastin Time 26.8 SEC (24.5-34.5); Prothrombin Time 11.8 sec (9.3-11.8)
[2023-11-09] MEDS ORDERED: MORPHINE SULFATE INJ 2 MG/ml SYRG IV PRN (12:00)
[2023-11-09] MEDS ORDERED: DOCUSATE SOD 100 MG CAP PO PRN (12:00)
[2023-11-09 12:16] VITALS: PULSE 70; RESP 19; O2SAT 93
[2023-11-09 12:31] LABS: Triglycerides 87 mg/dL (< 150)
[2023-11-09 12:32] LABS: LDL Cholesterol 47 mg/dL (< 100)
[2023-11-09 12:33] LABS: Cholesterol 111 mg/dL (< 200); HDL Cholesterol 44 mg/dL (40-59)
[2023-11-09] MEDS: LACTULOSE 20Gm/30ML SOLN PO ONE (15:24)
[2023-11-09] MEDS: ASPirin 325 MG TAB PO ONE (15:24)
[2023-11-09 19:22] VITALS: PULSE 81; RESP 20; O2SAT 92
[2023-11-09] MEDS: ONDANSETRON HCL 4 MG/2 ML VIAL IV ONE (20:38)
[2023-11-09] MEDS: ALBUMIN 25% 100 ML IV ONE (20:38)
[2023-11-09] MEDS: MORPHINE SULFATE 4 MG/ML SYR/VIAL IV ONE (20:38)
[2023-11-09] MEDS: FUROSEMIDE 20 MG/2 ML VIAL IV ONE (20:39)
[2023-11-09 21:58] VITALS: BP 141/60; PULSE 81; RESP 18; TEMP 97.5; O2SAT 92
[2023-11-09 22:00] VITALS: BP 141/90; PULSE 82; RESP 18; TEMP 97.5; O2SAT 92
[2023-11-09] MEDS ORDERED: LACTULOSE 20Gm/30ML SOLN PO PRN (22:00)
[2023-11-09] MEDS ORDERED: FURO40TA4 PO (22:22)
[2023-11-09] MEDS ORDERED: POTA8TAB38 PO (22:22)
[2023-11-09] MEDS ORDERED: CLOP75TA70 PO (22:22)
[2023-11-09] MEDS ORDERED: ASPI-543 PO (22:23)
[2023-11-09] MEDS: ATORVASTATIN 20 MG TAB PO SCH (22:43)
[2023-11-09] MEDS: CILOSTAZOL 100 MG TAB PO SCH (22:44)
[2023-11-10] VITALS (7 sets, daily range): BP systolic 106–124; BP diastolic 53–83; PULSE 78–99; RESP 16–20; TEMP 97.8–98.5; O2SAT 90–98
[2023-11-10 05:28] LABS: Basophils # (auto) 0 10 ^3/uL (0-0.2); Basophils % (auto) 0.3 % (0.0-2.0); Eosinophils # (auto) 0 10 ^3/uL (0-0.8); Eosinophils % (auto) 0.1 % (0.0-7.0); Hematocrit 40.4 % (41.0-53.0); Hemoglobin 13.3 g/dL (13.5-17.5); Lymphocytes # (auto) 0.8 10 ^3/uL (0.4-5.4); Lymphocytes % (auto) 9.2 % (10.0-50.0); Mean Corpuscular Hemoglobin 30.2 pg (28.0-32.0); Mean Corpuscular Volume 91.5 fL (80.0-100.0); Monocytes # (auto) 0.6 10 ^3/uL (0-1.3); Neutrophils # (auto) 7.3 10 ^3/uL (1.6-8.6); Neutrophils % (auto) 83.4 % (37.0-80.0); Nucleated Red Blood Cells % 0.1 %; Red Blood Cells 4.42 10^6/uL (4.5-5.90); Red Cell Distribution Width 14.1 % (11.8-14.3); White Blood Cell 8.8 10^3/uL (4.4-10.8)
[2023-11-10 05:46] LABS: Alanine Aminotransferase 15 U/L (7-40); Albumin 3.7 g/dL (3.2-4.8); Alkaline Phosphatase 55 U/L (46-116); Anion Gap 7 (5-15); Aspartate Aminotransferase 23 U/L (13-40); BUN/Creatinine Ratio 12.5 (10.0-20.0); Bilirubin, Total 1.4 mg/dL (0.2-1.0); Blood Urea Nitrogen 11 mg/dL (9-23); Calcium 9.1 mg/dL (8.5-10.1); Carbon Dioxide 31 mmol/L (20-30); Chloride 100 mmol/L (98-107); Glucose 91 mg/dL (74-106); Potassium 3.1 mmol/L (3.5-5.1); Sodium 138 mmol/L (136-145)
[2023-11-10 08:46] LABS: Urine Bacteria NONE SEEN /hpf (None Seen); Urine Blood Negative /uL (Negative); Urine Clarity Clear (Clear); Urine Color Yellow (Yellow); Urine Hyaline Cast FEW /lpf (0 - 2); Urine Mucus FEW (None Seen); Urine Protein, UAD 1+ (Negative); Urine Specific Gravity 1.032 (1.001-1.035); Urine WBC 2 /hpf (0 - 3)
[2023-11-10] MEDS: ENOXAPARIN SOD 40 MG/0.4 ML SYRINGE SC SCH (09:18)
[2023-11-10] MEDS: ASPirin 81 mg TAB PO SCH (09:18)
[2023-11-10] MEDS: ACETAMINOPHEN 325 MG TAB PO PRN (09:18)
[2023-11-10] MEDS: IOHEXOL 350 MG/ML 100ML IJ ONE (12:30)
[2023-11-10] MEDS: SODIUM CHLORIDE 0.9% 1,000 ML IV SCH (13:23)
[2023-11-10] MEDS: POTASSIUM EFFERVESENT TAB 25 MEQ PO ONE (13:24)
[2023-11-11] VITALS (8 sets, daily range): BP systolic 96–112; BP diastolic 51–86; PULSE 71–103; RESP 16–22; TEMP 98–98.4; O2SAT 92–96
[2023-11-11] MEDS: NITROGLYCERIN 0.4 MG SL TAB SL PRN (05:03)
[2023-11-11 06:35] LABS: Basophils # (auto) 0 10 ^3/uL (0-0.2); Basophils % (auto) 0.4 % (0.0-2.0); Eosinophils # (auto) 0 10 ^3/uL (0-0.8); Eosinophils % (auto) 0.4 % (0.0-7.0); Hematocrit 41.3 % (41.0-53.0); Hemoglobin 13.7 g/dL (13.5-17.5); Lymphocytes # (auto) 0.9 10 ^3/uL (0.4-5.4); Lymphocytes % (auto) 11.3 % (10.0-50.0); Mean Corpuscular Hemoglobin 30.4 pg (28.0-32.0); Mean Corpuscular Hgb Conc. 33.1 g/dL (32.0-36.0); Mean Corpuscular Volume 91.9 fL (80.0-100.0); Monocytes # (auto) 0.6 10 ^3/uL (0-1.3); Monocytes % (auto) 8.3 % (0.0-12.0); Neutrophils # (auto) 6.2 10 ^3/uL (1.6-8.6); Neutrophils % (auto) 79.6 % (37.0-80.0); Red Cell Distribution Width 14.4 % (11.8-14.3); White Blood Cell 7.7 10^3/uL (4.4-10.8)
[2023-11-11 06:47] LABS: Chloride 99 mmol/L (98-107); Potassium 3.2 mmol/L (3.5-5.1); Sodium 137 mmol/L (136-145)
[2023-11-11 06:48] LABS: Anion Gap 6 (5-15); Calcium 8.7 mg/dL (8.5-10.1); Carbon Dioxide 32 mmol/L (20-30)
[2023-11-11 06:53] LABS: Blood Urea Nitrogen 10 mg/dL (9-23); Glucose 90 mg/dL (74-106)
[2023-11-11] MEDS: FUROSEMIDE 20 MG TAB PO SCH (11:47)
[2023-11-11] MEDS: POTASSIUM EFFERVESENT TAB 25 MEQ PO ONE (11:48)
[2023-11-11] MEDS: NITROGLYCERIN 0.4MG/HR TOPICAL PATCH TD ONE (11:53)
[2023-11-12] VITALS (9 sets, daily range): BP systolic 100–113; BP diastolic 52–67; PULSE 79–92; RESP 16–18; TEMP 97.4–98.4; O2SAT 93–95
[2023-11-12 06:17] LABS: Chloride 98 mmol/L (98-107); Potassium 3.6 mmol/L (3.5-5.1); Sodium 135 mmol/L (136-145)
[2023-11-12 06:18] LABS: Anion Gap 9 (5-15); Carbon Dioxide 28 mmol/L (20-30)
[2023-11-12 06:23] LABS: BUN/Creatinine Ratio 9.3 (10.0-20.0); Blood Urea Nitrogen 8 mg/dL (9-23); Glucose 90 mg/dL (74-106)
[2023-11-12 06:24] LABS: Magnesium 2.2 mg/dL (1.6-2.6)
[2023-11-12] MEDS: ADENOSINE 78 MG in GIVE UN-DILUTED 0 ML IV ONE (10:51)
[2023-11-12] MEDS ORDERED: ATO40T PO (14:04)
[2023-11-12] MEDS ORDERED: DOXA1TAB50 PO (14:04)
[2023-11-13] VITALS (11 sets, daily range): BP systolic 96–145; BP diastolic 48–84; PULSE 75–93; RESP 16–21; TEMP 97.9–98.6; O2SAT 90–97
[2023-11-13 05:31] LABS: Basophils # (auto) 0.1 10 ^3/uL (0-0.2); Basophils % (auto) 0.8 % (0.0-2.0); Eosinophils # (auto) 0.1 10 ^3/uL (0-0.8); Eosinophils % (auto) 1.4 % (0.0-7.0); Hematocrit 45.1 % (41.0-53.0); Hemoglobin 14.9 g/dL (13.5-17.5); Lymphocytes # (auto) 0.9 10 ^3/uL (0.4-5.4); Lymphocytes % (auto) 13.5 % (10.0-50.0); Mean Corpuscular Hemoglobin 30.3 pg (28.0-32.0); Mean Corpuscular Hgb Conc. 33.1 g/dL (32.0-36.0); Mean Corpuscular Volume 91.6 fL (80.0-100.0); Monocytes # (auto) 0.7 10 ^3/uL (0-1.3); Monocytes % (auto) 9.9 % (0.0-12.0); Neutrophils % (auto) 74.4 % (37.0-80.0); Nucleated Red Blood Cells % 0.1 %; Red Blood Cells 4.93 10^6/uL (4.5-5.90); Red Cell Distribution Width 14.2 % (11.8-14.3); White Blood Cell 6.7 10^3/uL (4.4-10.8)
[2023-11-13 05:41] LABS: Anion Gap 8 (5-15); Carbon Dioxide 31 mmol/L (20-30); Chloride 99 mmol/L (98-107); Potassium 3.5 mmol/L (3.5-5.1); Sodium 138 mmol/L (136-145)
[2023-11-13 05:44] LABS: INR 1.11 (0.9-1.15); Partial Thromboplastin Time 23.2 SEC (24.5-34.5); Prothrombin Time 11.6 sec (9.3-11.8)
[2023-11-13 05:47] LABS: BUN/Creatinine Ratio 9.9 (10.0-20.0); Blood Urea Nitrogen 8 mg/dL (9-23); Glucose 89 mg/dL (74-106)
[2023-11-13] MEDS: AZITHROMYCIN 250 MG TAB PO SCH (13:07)
[2023-11-13] MEDS: IODIXANOL 320MG/ML 100ML BTL IV ONE (16:44)
[2023-11-13] MEDS: LIDOCAINE 2%HCL (LOCAL ANESTH.) INJ 20ML MDV ONE (16:44)
[2023-11-13] MEDS: ANGIOMAX 250 MG VIAL IV ONE (16:57)
[2023-11-13] MEDS: VERAPAMIL 2.5MG/ML INJ 2ML VIAL IV ONE (16:57)
[2023-11-13] MEDS: MIDAZOLAM HCL 2MG/2ML 2ml VIAL (1mg/ml) ONE (16:57)
[2023-11-13] MEDS: HEPARIN SODIUM (PORCINE) 5000 UNITS/ML 1ML VIAL ONE (16:57)
[2023-11-13] MEDS: fentaNYL CITRATE 100 MCG/2 ML VL ONE (16:57)
[2023-11-13] MEDS: SODIUM CHL 0.9% 0 ML ONE (16:57)
[2023-11-14] VITALS (7 sets, daily range): BP systolic 104–124; BP diastolic 44–67; PULSE 61–96; RESP 16–22; TEMP 97.6–98; O2SAT 91–93
[2023-11-14 06:42] LABS: Basophils # (auto) 0.1 10 ^3/uL (0-0.2); Basophils % (auto) 0.6 % (0.0-2.0); Eosinophils # (auto) 0.1 10 ^3/uL (0-0.8); Eosinophils % (auto) 1.6 % (0.0-7.0); Hematocrit 47.1 % (41.0-53.0); Hemoglobin 15.5 g/dL (13.5-17.5); Lymphocytes % (auto) 10.9 % (10.0-50.0); Mean Corpuscular Hemoglobin 30.7 pg (28.0-32.0); Mean Corpuscular Hgb Conc. 32.8 g/dL (32.0-36.0); Mean Corpuscular Volume 93.6 fL (80.0-100.0); Monocytes % (auto) 11.4 % (0.0-12.0); Neutrophils # (auto) 6.8 10 ^3/uL (1.6-8.6); Neutrophils % (auto) 75.5 % (37.0-80.0); Red Blood Cells 5.03 10^6/uL (4.5-5.90); Red Cell Distribution Width 14.7 % (11.8-14.3); White Blood Cell 9.1 10^3/uL (4.4-10.8)
[2023-11-14 06:57] LABS: Chloride 99 mmol/L (98-107); Potassium 3.6 mmol/L (3.5-5.1); Sodium 137 mmol/L (136-145)
[2023-11-14 06:58] LABS: Anion Gap 11 (5-15); Carbon Dioxide 27 mmol/L (20-30)
[2023-11-14 07:03] LABS: BUN/Creatinine Ratio 10.3 (10.0-20.0); Blood Urea Nitrogen 8 mg/dL (9-23); Glucose 76 mg/dL (74-106)
[2023-11-14] MEDS: HEPARIN SODIUM (PORCINE) 5000 UNITS/ML 1ML VIAL IV ONE (10:35)
[2023-11-14 10:36] LABS: INR 1.13 (0.9-1.15); Partial Thromboplastin Time 26.7 SEC (24.5-34.5); Prothrombin Time 11.8 sec (9.3-11.8)
[2023-11-14] MEDS: HEPARIN DRIP/D5W 100UNITS/ML 250 ML IV SCH (10:50)
[2023-11-14] MEDS: NITROGLYCERIN 0.4MG/HR TOPICAL PATCH TD SCH (12:21)
[2023-11-14 17:34] LABS: INR 1.09 (0.9-1.15); Partial Thromboplastin Time 29.8 SEC (24.5-34.5); Prothrombin Time 11.4 sec (9.3-11.8)
[2023-11-14] MEDS: ATORVASTATIN 20 MG TAB PO SCH (21:03)
[2023-11-15] VITALS (8 sets, daily range): BP systolic 102–140; BP diastolic 59–71; PULSE 64–92; RESP 16–20; TEMP 97.6–97.9; O2SAT 90–100
[2023-11-15 01:01] LABS: Basophils # (auto) 0.1 10 ^3/uL (0-0.2); Basophils % (auto) 0.7 % (0.0-2.0); Eosinophils # (auto) 0.1 10 ^3/uL (0-0.8); Hemoglobin 15.9 g/dL (13.5-17.5); Lymphocytes # (auto) 1.2 10 ^3/uL (0.4-5.4); Neutrophils # (auto) 6.6 10 ^3/uL (1.6-8.6); Nucleated Red Blood Cells % 0.1 %
[2023-11-15 01:05] LABS: Eosinophils % (auto) 1.2 % (0.0-7.0); Hematocrit 47.6 % (41.0-53.0); Lymphocytes % (auto) 13.6 % (10.0-50.0); Mean Corpuscular Hemoglobin 30.7 pg (28.0-32.0); Mean Corpuscular Hgb Conc. 33.4 g/dL (32.0-36.0); Mean Corpuscular Volume 91.8 fL (80.0-100.0); Monocytes % (auto) 11.1 % (0.0-12.0); Neutrophils % (auto) 73.4 % (37.0-80.0); Red Blood Cells 5.18 10^6/uL (4.5-5.90); Red Cell Distribution Width 14.2 % (11.8-14.3)
[2023-11-15 01:17] LABS: Alanine Aminotransferase 16 U/L (7-40); Albumin 4.1 g/dL (3.2-4.8); Alkaline Phosphatase 63 U/L (46-116); Anion Gap 9 (5-15); Aspartate Aminotransferase 34 U/L (13-40); BUN/Creatinine Ratio 13.2 (10.0-20.0); Blood Urea Nitrogen 12 mg/dL (9-23); Calcium 9.4 mg/dL (8.7-10.4); Carbon Dioxide 32 mmol/L (20-30); Chloride 95 mmol/L (98-107); Glucose 100 mg/dL (74-106); Potassium 3.2 mmol/L (3.5-5.1); Sodium 136 mmol/L (136-145)
[2023-11-15 01:18] LABS: Bilirubin, Total 2.1 mg/dL (0.2-1.0); Total Protein 7.2 g/dL (5.7-8.2)
[2023-11-15] MEDS: HEPARIN DRIP/D5W 100UNITS/ML 250 ML IV SCH ×3 (05:28→16:38)
[2023-11-15 08:03] LABS: INR 1.09 (0.9-1.15); Partial Thromboplastin Time 28.7 SEC (24.5-34.5); Prothrombin Time 11.4 sec (9.3-11.8)
[2023-11-15] MEDS: HEPARIN SODIUM (PORCINE) 5000 UNITS/ML 1ML VIAL IV ONE (08:46)
[2023-11-15] MEDS: POTASSIUM EFFERVESENT TAB 25 MEQ GT ONE (14:47)
[2023-11-15 15:21] LABS: INR 1.16 (0.9-1.15); Prothrombin Time 12.1 sec (9.3-11.8)
[2023-11-15 15:32] LABS: Partial Thromboplastin Time > 139.0 SEC (24.5-34.5)
[2023-11-15 23:10] LABS: INR 1.13 (0.9-1.15); Prothrombin Time 11.8 sec (9.3-11.8)
[2023-11-15 23:14] LABS: Partial Thromboplastin Time 78.9 SEC (24.5-34.5)
[2023-11-16 01:00] VITALS: BP 103/46; PULSE 88; RESP 16; TEMP 97.8; O2SAT 100
[2023-11-16 05:00] VITALS: BP 107/58; PULSE 87; RESP 16; TEMP 97.4; O2SAT 92
[2023-11-16 06:53] LABS: INR 1.08 (0.9-1.15); Partial Thromboplastin Time 29.9 SEC (24.5-34.5); Prothrombin Time 11.3 sec (9.3-11.8)
[2023-11-16 08:00] VITALS: PULSE 75
[2023-11-16 08:17] VITALS: BP 107/49; PULSE 82; RESP 18; TEMP 97.9; O2SAT 94
[2023-11-16] MEDS: HEPARIN DRIP/D5W 100UNITS/ML 250 ML IV SCH (09:52)
[2023-11-16] MEDS: HEPARIN SODIUM (PORCINE) 5000 UNITS/ML 1ML VIAL IV ONE (09:53)
[2023-11-16 12:25] VITALS: BP 107/59; PULSE 77; RESP 18; TEMP 97.8; O2SAT 95
[2023-11-16 16:39] VITALS: BP 99/47; PULSE 91; RESP 18; TEMP 97.5; O2SAT 94
[2023-11-16 16:40] LABS: INR 1.1 (0.9-1.15); Partial Thromboplastin Time 36.8 SEC (24.5-34.5); Prothrombin Time 11.5 sec (9.3-11.8)
[2023-11-16] MEDS ORDERED: HEPARIN DRIP/D5W 100UNITS/ML 250 ML IV SCH (18:45)
== END 2023-11-16 18:59 | disposition short-term general hospital (02) | DRG 286 ==
LOC: ER 10:15 → TELE-WESTW 12:12 → TELE 12:12 → TELE-WESTW 21:25
PROVIDERS: ADMIT Nurse Practitioner Family; ATTEND Nurse Practitioner Acute Care
PROC: 4A023N7 Measurement of Cardiac Sampling and Pressure, Left Heart, Percutaneous Approach (ICD-10-PCS; principal; 2023-11-13)
PROC: B2111ZZ Fluoroscopy of Multiple Coronary Arteries using Low Osmolar Contrast (ICD-10-PCS; 2023-11-13)
PROC: B2151ZZ Fluoroscopy of Left Heart using Low Osmolar Contrast (ICD-10-PCS; 2023-11-13)
PROC: 03HY32Z Insertion of Monitoring Device into Upper Artery, Percutaneous Approach (ICD-10-PCS; 2023-11-13)
DX: I11.0 Hypertensive heart disease with heart failure (principal); I50.43 Acute on chronic combined systolic (congestive) and diastolic (congestive) heart failure; I24.9 Acute ischemic heart disease, unspecified; I73.9 Peripheral vascular disease, unspecified; E78.5 Hyperlipidemia, unspecified; I25.10 Atherosclerotic heart disease of native coronary artery without angina pectoris; K57.30 Diverticulosis of large intestine without perforation or abscess without bleeding; R33.9 Retention of urine, unspecified; J44.9 Chronic obstructive pulmonary disease, unspecified; I71.43 Infrarenal abdominal aortic aneurysm, without rupture; E66.9 Obesity, unspecified; K59.00 Constipation, unspecified; Z83.3 Family history of diabetes mellitus; Z95.5 Presence of coronary angioplasty implant and graft; Z68.28 Body mass index [BMI] 28.0-28.9, adult; Z79.899 Other long term (current) drug therapy; Z79.82 Long term (current) use of aspirin; Z87.891 Personal history of nicotine dependence
CPT/HCPCS: 36415; 71045; 71275; 74176; 76775; 78452; 80048; 80053; 80061; 81001; 83735; 83880; 84443; 84484; 85025; 85379; 85610; 85730; 86850; 86900; 86901; 93005; 93017; 93306; 93458; 93970; 97110; 97116; 97163; 97530; 99152; G0378; J0153; J2250; J2405; Q9967

== ENCOUNTER → 2023-12-23 | Outpatient (CLI) | payer OTHER ==
[~2023-12-23] MED LIST changes: +ASPI-543 PO; +ATOR-507 PO; -ATOR10TA52 PO; -CILO100T PO; +CILO100T3 PO; +CLOP75TA70 PO; +FURO40TA4 PO; -HYDR25TA4 PO; +POTA8TAB38 PO
[2023-12-23 08:02] LABS: Alkaline Phosphatase 127 U/L (46-116); Anion Gap 9 (5-15); Aspartate Aminotransferase 25 U/L (13-40); BUN/Creatinine Ratio 6.9 (10.0-20.0); Blood Urea Nitrogen 7 mg/dL (9-23); Calcium 8.3 mg/dL (8.5-10.1); Carbon Dioxide 32 mmol/L (20-30); Chloride 94 mmol/L (98-107); Glucose 108 mg/dL (74-106); Potassium 2.8 mmol/L (3.5-5.1); Sodium 135 mmol/L (136-145)
[2023-12-23 08:03] LABS: Albumin 3.4 g/dL (3.2-4.8)
[2023-12-23 08:04] LABS: Bilirubin, Total 1.2 mg/dL (0.2-1.0); Total Protein 6.4 g/dL (5.7-8.2)
[2023-12-23 08:06] LABS: Alanine Aminotransferase 9 U/L (7-40)
== END | disposition home or self-care (01) ==
LOC: LAB 06:51
PROVIDERS: ATTEND Internal Medicine
DX: I50.22 Chronic systolic (congestive) heart failure (principal); N18.2 Chronic kidney disease, stage 2 (mild)
CPT/HCPCS: 36415; 80053

== ENCOUNTER 2024-08-01 23:49 | Emergency (ER) | payer OTHER, BC ==
[~2024-08-01] VITALS: Ht 167.6 cm; Wt 68.2 kg
--- NOTE | 2024-08-02 00:07 | ED.PDOC ---
History of Present Illness HPI Comments 79-year-old male with PMHx CAD, CHF, HLD brought in by EMS presents with a chief complaint of weakness s/p fall. Per EMS, landlord attempted to make contact with patient at his home, but was not responding. Landlord entered the home and found patient on the floor and was unable to get up. Patient had a fall yesterday, but denied EMS treatment and transportation to hospital. Patient reports that he fell x 2 hours ago and was again unable to get up. Patient is alert and oriented x 3, but unsure what his normal mentation baseline is. Chief Complaint: ALOC Time Seen by MD: 00:00 Primary Care Provider: ESTEFANÍA Velasquez Notes: Medications, Allergies Allergies: Coded Allergies: NO KNOWN ALLERGIES (Unverified , 09/14/18) Home Meds Reported Medications Doxazosin Mesylate (Doxazosin Mesylate) 4 Mg Tab, 1 TAB PO DAILY 11/12/23 Atorvastatin Calcium (Lipitor) 40 Mg Tab, 1 TAB PO DAILY 11/12/23 Aspirin (Aspir-Low) 81 Mg Tab, 81 MG PO DAILY for 30 Days, MG 11/09/23 Potassium Chloride (Klor-Con 8) 8 Meq Tab, 1 TAB PO DAILY 11/09/23 Clopidogrel Bisulfate (CLOPIDOGREL) 75 Mg Tab, 1 TAB PO DAILY 11/09/23 Furosemide (Furosemide) 40 Mg Tab, 1 TAB PO DAILY 11/09/23 Oxycodone W/ Acetaminophen (Apap/Oxycodone) 1 Tab Tab, 1 TAB PO Q6HPRN, TAB 09/15/18 Cilostazol (Cilostazol) 100 Mg Tab, 100 MG PO BID, MG 09/15/18 Information Source: Patient, Emergency Med Personnel Mode of Arrival: EMS Severity: Moderate Timing: Days Duration: Intermittent Prehospital treatment: None Past Medical History PAST MEDICAL HISTORY: CAD, CHF, High Lipids Surgical History: CABG, Hernia Repair, PTCA, Tonsillectomy Family History Family History: Family hx of heart ellen Social History Smoker: Non-Smoker, Quit Less Than 1 Year Alcohol: Denies ETOH Use Drugs: Denies Drug Use Lives In: Home Constitutional: reports: weakness; denies: chills, diaphoresis, fatigue, fever, malaise, sweats, others EENTM: denies: blurred vision, double vision, ear bleeding, ear discharge, ear drainage, ear pain, ear ringing, eye pain, eye redness, hearing loss, mouth pain, mouth swelling, nasal discharge, nose bleeding, nose congestion, nose pain, photophobia, tearing, throat pain, throat swelling, voice changes, others Respiratory: denies: cough, hemoptysis, orthopnea, SOB at rest, shortness of breath, SOB with excertion, stridor, wheezing, others Cardiovascular: denies: chest pain, dizzy spells, diaphoresis, Dyspnea on exertion, edema, irregular heart beat, left arm pain, lightheadedness, palpitations, PND, syncope, others Gastrointestinal: denies: abdomen distended, abdominal pain, blood streaked bowels, constipated, diarrhea, dysphagia, difficulty swallowing, hematemesis, melena, nausea, poor appetite, poor fluid intake, rectal bleeding, rectal pain, vomiting, others Genitourinary: denies: burning, dysuria, flank pain, frequency, hematuria, incontinence, penile discharge, penile sore, pain, testicle pain, testicle swelling, urgency, others Neurological: denies: dizziness, fainting, headache, left sided numbness, left sided weakness, numbness, paresthesia, pre-existing deficit, right sided numbness, right sided weakness, seizure, speech problems, tingling, tremors, weakness, others Musculoskeletal: denies: back pain, gout, joint pain, joint swelling, muscle pain, muscle stiffness, neck pain, others Integumetry: denies: bruises, change in color, change in hair/nails, dryness, laceration, lesions, lumps, rash, wounds, others Allergic/Immunocompromised: denies: Difficulty Healing, Frequent Infections, Hives, Itching, others Hematologic/Lymphatic: denies: anemia, blood clots, easy bleeding, easy bruising, swollen glands, others Endocrine: denies: excessive hunger, excessive sweating, excessive thirst, excessive urination, flushing, intolerance to cold, intolerance to heat, unexpl ained weight gain, unexplained weight loss, others Psychiatric: denies: anxiety, bipolar disorder, depression, hopeless, panic disorder, schizophrenia, sleepless, suicidal, others All Other Systems: Reviewed and Negative Physical Exam General Appearance: No Apparent Distress, Normal HEENT: Normal ENT Inspection, Pharynx Normal, TMs Normal Neck: Full Range of Motion, Non-Tender, Normal, Normal Inspection Respiratory: Chest Non-Tender, Lungs Clear, No Accessory Muscle Use, No Respiratory Distress, Normal Breath Sounds Cardiovascular: No Edema, No JVD, No Murmur, No Gallop, Normal Peripheral Pulses, Regular Rate/Rhythm Breast Exam: Deferred Gastrointestinal: No Organomegaly, Non Tender, No Pulsatile Mass, Normal Bowel Sounds, Soft Genitalia: Deferred Pelvic: Deferred Rectal: Deferred Extremities: No calf tenderness, Normal capillary refill, Normal inspection, Normal range of motion, Non-tender, No pedal edema Musculoskeletal : Apperance: Normal Neurologic: Alert, 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 Was a procedure done?: No EKG EKG : Pulse Rate (adult): 76 Raymond: Normal Cardiac Rhythm: NSR Block: None Hypertrophy: LVH ST: Normal Differential Dx Considerations may include: dementia, uti, pneumonia, acs, electrolyte disorders, hypoglycemia, failure to thrive, generalized weakness X-Ray, Labs, Meds, VS Vital Signs Date Time Temp Pulse Resp B/P (MAP) Pulse Ox O2 Delivery O2 Flow Rate FiO2 08/02/24 00:47 91 14 95 Room Air* 0 21 08/02/24 00:07 76 08/01/24 23:57 78 08/01/24 23:57 98.6 84 18 131/69 (89) 94 Lab Test 08/02/24 00:52 08/01/24 23:57 Range/Units Troponin I High Sensitivity 26 25 </=54 ng/L White Blood Count 10.0 4.4-10.8 10^3/uL Red Blood Count 5.01 4.5-5.90 10^6/uL Hemoglobin 15.3 13.5-17.5 g/dL Hematocrit 46.6 41.0-53.0 % Mean Corpuscular Volume 93.0 80.0-100.0 fL Mean Corpuscular Hemoglobin 30.5 28.0-32.0 pg Mean Corpuscular Hemoglobin Concent 32.7 32.0-36.0 g/dL Red Cell Distribution Width 16.8 H 11.8-14.3 % Platelet Count 169 140-450 10^3/uL Mean Platelet Volume 9.3 6.9-10.8 fL Neutrophils (%) (Auto) 85.0 H 37.0-80.0 % Lymphocytes (%) (Auto) 7.2 L 10.0-50.0 % Monocytes (%) (Auto) 7.6 0.0-12.0 % Eosinophils (%) (Auto) 0.0 0.0-7.0 % Basophils (%) (Auto) 0.2 0.0-2.0 % Neutrophils # (Auto) 8.5 1.6-8.6 10 ^3/uL Lymphocytes # (Auto) 0.7 0.4-5.4 10 ^3/uL Monocytes # (Auto) 0.8 0-1.3 10 ^3/uL Eosinophils # (Auto) 0 0-0.8 10 ^3/uL Basophils # (Auto) 0 0-0.2 10 ^3/uL Nucleated Red Blood Cells 0.0 % Sodium Level 142 136-145 mmol/L Potassium Level 3.0 L 3.5-5.1 mmol/L Chloride Level 101 98-107 mmol/L Carbon Dioxide Level 23 20-31 mmol/L Anion Gap 18 H 5-15 Blood Urea Nitrogen 13 9-23 mg/dL Creatinine 1.39 H 0.700-1.30 mg/dL Glomerular Filtration Rate Calc 51 >90 mL/min BUN/Creatinine Ratio 9.4 L 10.0-20.0 Serum Glucose 90 74-106 mg/dL Calcium Level 9.4 8.7-10.4 mg/dL Plasma/Serum Blood Alcohol < 3.0 <10 mg/dL Time of 1ST Reevaluation: 00:30 Reevaluation 1ST: Unchanged Time of 2ND Reevaluation: 01:29 Reevaluation 2ND: Improved Patient Education/Counseling: Diagnosis, Treatment, Prognosis, Need For Follow Up Family Education/Counseling: No Family Present Additional Information The following tests were ordered, and results were reviewed by me: cbc, bmp, trop, ,ua, etoh,cxr, head ct Additional information was gathered from interviewing the following independent historians: EMS gave initial report. I discussed treatments and results with medical personnel pt remains alert, oriented to event, place and person. he does not know the date, but we have no baseline orientation. otherwise, pt is well and has no complaints. his workup is unremarkable. i am concerned about frequent falls, so discussed with him about admission for placement consideration. however, he refused. he states that he lives with his . she is in the hospital now and when she returns, they plan to continue living independently. i will have SW go out to do a safety eval and provide any help we can. 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 Electronically submitted by Kunal Dumont ([email or web address]). LARRY DOE MD Aug 02, 2024 00:07
[2024-08-02 00:18] LABS: Basophils # (auto) 0 10 ^3/uL (0-0.2); Basophils % (auto) 0.2 % (0.0-2.0); Eosinophils # (auto) 0 10 ^3/uL (0-0.8); Hematocrit 46.6 % (41.0-53.0); Hemoglobin 15.3 g/dL (13.5-17.5); Lymphocytes # (auto) 0.7 10 ^3/uL (0.4-5.4); Lymphocytes % (auto) 7.2 % (10.0-50.0); Mean Corpuscular Hemoglobin 30.5 pg (28.0-32.0); Mean Corpuscular Hgb Conc. 32.7 g/dL (32.0-36.0); Monocytes # (auto) 0.8 10 ^3/uL (0-1.3); Monocytes % (auto) 7.6 % (0.0-12.0); Neutrophils # (auto) 8.5 10 ^3/uL (1.6-8.6); Platelet Count (auto) 169 10^3/uL (140-450); Red Blood Cells 5.01 10^6/uL (4.5-5.90); Red Cell Distribution Width 16.8 % (11.8-14.3)
[2024-08-02 00:24] LABS: Chloride 101 mmol/L (98-107); Sodium 142 mmol/L (136-145)
[2024-08-02 00:25] LABS: Anion Gap 18 (5-15); Carbon Dioxide 23 mmol/L (20-31)
[2024-08-02 00:26] LABS: Calcium 9.4 mg/dL (8.7-10.4)
[2024-08-02 00:30] LABS: Glucose 90 mg/dL (74-106)
[2024-08-02 00:31] LABS: BUN/Creatinine Ratio 9.4 (10.0-20.0); Blood Alcohol < 3.0 mg/dL (<10); Blood Urea Nitrogen 13 mg/dL (9-23)
[2024-08-02 00:47] VITALS: PULSE 91; RESP 14; O2SAT 95
--- NOTE | 2024-08-02 01:00 | DVH ---
CHEST RADIOGRAPH Indication: weakness Technique: Single frontal view of the chest was obtained COMPARISON: XY CHEST PORTABLE on DOS: 11/15/23, XY CHEST PORTABLE on DOS: 11/12/23, XY CHEST PORTABLE o n DOS: 11/09/23 FINDINGS: Lines and Tubes: None Lungs: Clear Pleura: No effusion. No pneumothorax. Cardiomediastinal contours: Unremarkable Bones: Unremarkable IMPRESSION: 1. No acute disease.
--- NOTE | 2024-08-02 01:16 | DVH ---
CT HEAD WITHOUT CONTRAST INDICATION: altered COMPARISON: CT ABD PELVIS WO CONTRAST on DOS: 04/22/22 TECHNIQUE: CT of the head without intravenous contrast. RADIATION DOSE: CTDIvol: 51.27 mGy, DLP: 822.09 mGy*cm FINDINGS: There is no evidence of acute intracranial hemorrhage, extra-axial collection, mass effect, midline s hift, herniation or hydrocephalus. The ventricles, sulci and cisterns are age appropriate. Chronic microvascular ischemic changes. The visualized paranasal sinuses and mastoid air cells are clear. T he surrounding soft tissues and osseous structures are unremarkable. IMPRESSION: 1. No evidence of acute intracranial hemorrhage, mass effect or hydrocephalus. 2. Chronic microvascular ischemic changes.
[2024-08-02] MEDS ORDERED: POTASSIUM CHL 20 Meq TABLET PO ONE (01:30)
[2024-08-02] MEDS: POTASSIUM EFFERVESENT TAB 25 MEQ PO ONE (01:52)
--- NOTE | 2024-08-02 06:47 | ECG ---
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
[2024-08-02 07:30] VITALS: PULSE 82; RESP 14; O2SAT 96
[2024-08-02 19:40] VITALS: TEMP 98
[2024-08-02 19:45] VITALS: PULSE 79; RESP 14; O2SAT 97
[2024-08-02] MEDS ORDERED: ACETAMINOPHEN 325 MG TAB PO PRN (20:45)
[2024-08-02] MEDS ORDERED: MORPHINE SULFATE INJ 2 MG/ml SYRG IV PRN ×2 (20:45)
[2024-08-02] MEDS ORDERED: ONDANSETRON HCL 4 MG/2 ML VIAL IV PRN (20:45)
[2024-08-02] MEDS ORDERED: DOCUSATE SOD 100 MG CAP PO PRN (20:45)
[2024-08-02] MEDS ORDERED: NITROGLYCERIN 0.4 MG SL TAB SL PRN (20:45)
[2024-08-02 21:41] VITALS: BP 107/59; PULSE 59; RESP 12; O2SAT 97
[2024-08-02] MEDS: SODIUM CHLOR 0.9% PF (SALINE LOCK) 10ML VIAL/SYR IV SCH (22:00)
[2024-08-03] MEDS ORDERED: ENOXAPARIN SOD 40 MG/0.4 ML SYRINGE SC SCH (10:00)
== END 2024-08-02 22:08 ==
LOC: ER 23:49 → EDBD 23:49 → EDUNIT# 23:49 → ER 08-02 01:37 → UNDOADMIN 08-02 20:44 → OVERFLOW 08-02 20:44 → ER 08-02 22:08
DX: R53.1 Weakness (principal); E78.5 Hyperlipidemia, unspecified; I50.9 Heart failure, unspecified; Z79.82 Long term (current) use of aspirin; Z79.899 Other long term (current) drug therapy; Z90.89 Acquired absence of other organs; Z98.890 Other specified postprocedural states; Z95.1 Presence of aortocoronary bypass graft; W18.39XA Other fall on same level, initial encounter; Y93.89 Activity, other specified; Y92.89 Other specified places as the place of occurrence of the external cause; Y99.8 Other external cause status
CPT/HCPCS: 36415; 70450; 71045; 80048; 80320; 83735; 83880; 84443; 84484; 85025; 93005

== ENCOUNTER 2024-11-11 10:49 | Inpatient (IN) | payer OTHER, MEDICAID ==
[~2024-11-11] VITALS: Ht 167.6 cm; Wt 66.3 kg
--- NOTE | 2024-11-11 11:05 | ED.PDOC ---
Musculoskeletal HPI Comments 79 y/o M, BIBA with PMHX of dementia, CAD, CHF, and HLD presents to the ED for CC of hip fracture. EMS states, patient is transfer from [facility] for s/p fall resulting in right hip fracture. EMS relays, patient is pleasantly confused; complains of right hip pain. EMS denies any or symptoms or modifying factors at this time. Chief Complaint: Lower Extremity Time Seen by MD: 10:50 Primary Care Provider: ESTEFANÍA Payne Reviewed Notes: Nurses Notes, Criminal Justice Social Worker Notes, Medications, Allergies Allergies: Coded Allergies: NO KNOWN ALLERGIES (Unverified , 09/14/18) Home Meds Reported Medications Doxazosin Mesylate (Doxazosin Mesylate) 4 Mg Tab, 1 TAB PO DAILY 11/12/23 Atorvastatin Calcium (Lipitor) 40 Mg Tab, 1 TAB PO DAILY 11/12/23 Aspirin (Aspir-Low) 81 Mg Tab, 81 MG PO DAILY for 30 Days, MG 11/09/23 Potassium Chloride (Klor-Con 8) 8 Meq Tab, 1 TAB PO DAILY 11/09/23 Clopidogrel Bisulfate (CLOPIDOGREL) 75 Mg Tab, 1 TAB PO DAILY 11/09/23 Furosemide (Furosemide) 40 Mg Tab, 1 TAB PO DAILY 11/09/23 Oxycodone W/ Acetaminophen (Apap/Oxycodone) 1 Tab Tab, 1 TAB PO Q6HPRN, TAB 09/15/18 Cilostazol (Cilostazol) 100 Mg Tab, 100 MG PO BID, MG 09/15/18 Information Source: Emergency Med Personnel Mode of Arrival: EMS Location: Right Extremity Location: Hip Prehospital treatment: None Severity: Moderate Able to Move Extremity: No Bear Weight: No Pain: Moderate Circumstances: Fall Onset of Symptoms: After Trauma Symptoms: Swelling, Pain DVT Risk Factors: NONE Last Tetanus: Unknown Associated signs and symptoms: None Past Medical History PAST MEDICAL HISTORY: CAD, CHF, Dementia, High Lipids Surgical History: CABG, Hernia Repair, PTCA, Tonsillectomy Family History Family History: Family hx of heart ellen Social History Smoker: Non-Smoker, Quit Less Than 1 Year Alcohol: Denies ETOH Use Drugs: Denies Drug Use Lives In: Home Unable to Obtain due to: Dementia Physical Exam General Appearance: No Apparent Distress, Normal HEENT: Normal ENT Inspection, Pharynx Normal, TMs Normal Neck: Full Range of Motion, Non-Tender, Normal, Normal Inspection Respiratory: Chest Non-Tender, Lungs Clear, No Accessory Muscle Use, No Respiratory Distress, Normal Breath Sounds Cardiovascular: No Edema, No Murmur, No Gallop, Normal Peripheral Pulses, Regular Rate/Rhythm Breast Exam: Deferred Gastrointestinal: No Organomegaly, Non Tender, No Pulsatile Mass, Normal Bowel Sounds, Soft Genitalia: Deferred Pelvic: Deferred, Other (no pain with axial loading) Rectal: Deferred Extremities: No pedal edema, Tender (RIGHT proximal femur/hip ttp, unable to lift RLE up against gravity. bilateral feet/ankles iwth normal ROM) Musculoskeletal : Location: Right Extremity Location: Hip Apperance: Tenderness, Other (unable to move right extremity against gravity, unable to flex or extend extremity ), NOT DONE Neurologic: Alert, drafting detailer II-XII nml as Tested, Normal Affect, Normal Mood, No Sensory Deficits, Other (pleasantly confused ) Cerebellar Function: Normal Reflexes: Normal Skin: Dry, Normal Color, Warm Lymphatic: No Adenopathy Was a procedure done? Was a procedure done?: No Differential Diagnosis EXT Differential Diagnosis: Fracture X-Ray, Labs, Meds, VS Vital Signs Date Time Temp Pulse Resp B/P (MAP) Pulse Ox O2 Delivery O2 Flow Rate FiO2 11/11/24 12:46 85 18 96 Room Air* 0 21 11/11/24 12:14 98.1 86 18 132/80 (97) 96 98.1 11/11/24 12:14 86 18 96 Room Air 11/11/24 11:50 97.9 80 14 102/64 (77) 97 Lab Test 11/11/24 11:54 Range/Units White Blood Count 11.6 H 4.4-10.8 10^3/uL Red Blood Count 4.07 L 4.5-5.90 10^6/uL Hemoglobin 12.4 L 13.5-17.5 g/dL Hematocrit 39.1 L 41.0-53.0 % Mean Corpuscular Volume 96.0 80.0-100.0 fL Mean Corpuscular Hemoglobin 30.5 28.0-32.0 pg Mean Corpuscular Hemoglobin Concent 31.8 L 32.0-36.0 g/dL Red Cell Distribution Width 15.6 H 11.8-14.3 % Platelet Count 190 140-450 10^3/uL Mean Platelet Volume 8.5 6.9-10.8 fL Neutrophils (%) (Auto) 86.3 H 37.0-80.0 % Lymphocytes (%) (Auto) 6.0 L 10.0-50.0 % Monocytes (%) (Auto) 7.3 0.0-12.0 % Eosinophils (%) (Auto) 0.1 0.0-7.0 % Basophils (%) (Auto) 0.3 0.0-2.0 % Neutrophils # (Auto) 10.0 H 1.6-8.6 10 ^3/uL Lymphocytes # (Auto) 0.7 0.4-5.4 10 ^3/uL Monocytes # (Auto) 0.8 0-1.3 10 ^3/uL Eosinophils # (Auto) 0 0-0.8 10 ^3/uL Basophils # (Auto) 0 0-0.2 10 ^3/uL Nucleated Red Blood Cells 0.0 % Prothrombin Time 11.2 9.3-11.8 sec Prothrombin Time INR 1.06 0.9-1.15 Sodium Level 138 136-145 mmol/L Potassium Level 3.8 3.5-5.1 mmol/L Chloride Level 104 98-107 mmol/L Carbon Dioxide Level 26 20-31 mmol/L Anion Gap 8 5-15 Blood Urea Nitrogen 9 9-23 mg/dL Creatinine 0.75 0.700-1.30 mg/dL Glomerular Filtration Rate Calc 91 >90 mL/min BUN/Creatinine Ratio 12.0 10.0-20.0 Serum Glucose 106 74-106 mg/dL Calcium Level 9.0 8.7-10.4 mg/dL Total Bilirubin 0.9 0.2-1.0 mg/dL Aspartate Amino Transferase (AST) 17 13-40 U/L Alanine Aminotransferase (ALT) 12 7-40 U/L Alkaline Phosphatase 81 46-116 U/L Total Protein 6.2 5.7-8.2 g/dL Albumin 3.5 3.2-4.8 g/dL [address] [address] Ph: [phone] DIAGNOSTIC IMAGING Diagnostic Imaging Report : [id number] Signed PATIENT: SHANA PARISI ACCT: [id number] UNIT: [id number] : 1945 LOC: ER ROOM / BED: / AGE / SEX: 79 / M ADM STATUS: REG ER SERVICE 1115 ORDERING PHYSICIAN: KARLO FERNÁNDEZ MD PROCEDURE(s): RHIP - R HIP COMPLETE XRAY REASON: pain ORDER NUMBER(s): [id number], ACCESSION NUMBER(s): [id number] CLINICAL INDICATION: pain TECHNIQUE: XY R HIP COMPLETE XRAY Comparison: None FINDINGS/IMPRESSION: : Comminuted and angulated intertrochanteric fracture of the right proximal femur. ATED BY: BRENDON MALDONADO MD DICTATED DATE/TIME: 11/11/24 120 SIGNED BY: BRENDON MALDONADO MD SIGNED DATE/TIME: 11/11/241201 CC: X-Ray, Labs, Meds, VS Comment This pleasantly demented 79-year-old male presents secondary to a right hip fracture. Patient was admitted overnight at [facility] prior to transfer to our facility. Here, he was noted to have a right intertrochanteric fracture. He will be admitted to our hospitalist service with ortho referral. Time of 1ST Reevaluation: 11:20 Reevaluation 1ST: Unchanged Patient Education/Counseling: Diagnosis, Treatment Family Education/Counseling: No Family Present Departure 1 Departure Time of Disposition: 13:24 Impression: Primary Impression: Fracture, intertrochanteric, right femur Additional Impression: Right hip pain Disposition: ADMITTED INPATIENT Admit to: Tele Condition: Serious Discharged With: Self Critical Care Note Critical Care Time?: No Stability Stability form required: No Heart Score Heart Score: Heart Score Response (Comments) Value History N/A 0 EKG N/A 0 Age N/A 0 Risk Factors N/A 0 Troponin N/A 0 Total 0 I personally scribed for KARLO FERNÁNDEZ MD ([email or web address]) on 11/11/24 at 11:05. Electronically submitted by Sabi Ham ([email or web address]). I personally scribed for KARLO FERNÁNDEZ MD ([email or web address]) on 11/11/24 at 11:11. Electronically submitted by Sabi Ham ([email or web address]). I personally scribed for KARLO FERNÁNDEZ MD ([email or web address]) on 11/11/24 at 11:14. Electronically submitted by Sabi Ham ([email or web address]). I personally scribed for KARLO FERNÁNDEZ MD ([email or web address]) on 11/11/24 at 12:25. Electronically submitted by Sabi Ham ([email or web address]). KARLO FERNÁNDEZ MD Nov 11, 2024 11:05
--- NOTE | 2024-11-11 12:05 | DVH ---
CLINICAL INDICATION: pain TECHNIQUE: XY R HIP COMPLETE XRAY Comparison: None FINDINGS/IMPRESSION: : Comminuted and angulated intertrochanteric fracture of the right proximal femur.
[2024-11-11 12:07] LABS: Basophils # (auto) 0 10 ^3/uL (0-0.2); Basophils % (auto) 0.3 % (0.0-2.0); Eosinophils # (auto) 0 10 ^3/uL (0-0.8); Eosinophils % (auto) 0.1 % (0.0-7.0); Hematocrit 39.1 % (41.0-53.0); Hemoglobin 12.4 g/dL (13.5-17.5); Lymphocytes # (auto) 0.7 10 ^3/uL (0.4-5.4); Mean Corpuscular Hemoglobin 30.5 pg (28.0-32.0); Mean Corpuscular Hgb Conc. 31.8 g/dL (32.0-36.0); Monocytes # (auto) 0.8 10 ^3/uL (0-1.3); Monocytes % (auto) 7.3 % (0.0-12.0); Neutrophils % (auto) 86.3 % (37.0-80.0); Platelet Count (auto) 190 10^3/uL (140-450); Red Blood Cells 4.07 10^6/uL (4.5-5.90); Red Cell Distribution Width 15.6 % (11.8-14.3); White Blood Cell 11.6 10^3/uL (4.4-10.8)
[2024-11-11 12:27] LABS: Alanine Aminotransferase 12 U/L (7-40); Albumin 3.5 g/dL (3.2-4.8); Alkaline Phosphatase 81 U/L (46-116); Anion Gap 8 (5-15); Aspartate Aminotransferase 17 U/L (13-40); Blood Urea Nitrogen 9 mg/dL (9-23); Carbon Dioxide 26 mmol/L (20-31); Chloride 104 mmol/L (98-107); Glucose 106 mg/dL (74-106); Potassium 3.8 mmol/L (3.5-5.1); Sodium 138 mmol/L (136-145); Total Protein 6.2 g/dL (5.7-8.2)
[2024-11-11 12:28] LABS: Bilirubin, Total 0.9 mg/dL (0.2-1.0); INR 1.06 (0.9-1.15); Prothrombin Time 11.2 sec (9.3-11.8)
[2024-11-11 12:46] VITALS: PULSE 85; RESP 18; O2SAT 96
[2024-11-11 13:30] VITALS: PULSE 95; RESP 16; O2SAT 95
[2024-11-11] MEDS: cefTRIAXone 1GM/50ML D5W 50 ML IV ONE (13:45)
[2024-11-11] MEDS ORDERED: ONDANSETRON HCL 4 MG/2 ML VIAL IV PRN (13:45)
[2024-11-11] MEDS ORDERED: SERT-160 (13:49)
[2024-11-11 14:17] LABS: Urine Bacteria None Seen /hpf (None Seen)
--- NOTE | 2024-11-11 14:24 | DVHHP2 ---
History of Present Illness Reason for Visit: Status post fall History of Present Illness Arsalan Arcos is an 79-year-old male with past medical history of CAD status post PTCA, hypertension, hyperlipidemia, dementia, CHF, hernia repair, and tonsillectomy who presents to the ED for a slip and fall at the senior living facility. Patient is currently alert and oriented x2 to person and date of . When asked what happened where the patient is currently at patient is unable to provide information. Patient currently denies of chest pain and shortness of breath. 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 moist/pink Respiratory: Normal air movement Cardiovascular: Normal S1, Normal S2, No murmurs Abdominal: Soft Extremities: Other (Bilateral lower extremity discoloration and bruising bilateral upper extremities) Neuro: Normal speech Psych/Mental Status: Mental status NL Labs/Xrays Labs Test 11/11/24 11:54 Range/Units White Blood Count 11.6 H 4.4-10.8 10^3/uL Red Blood Count 4.07 L 4.5-5.90 10^6/uL Hemoglobin 12.4 L 13.5-17.5 g/dL Hematocrit 39.1 L 41.0-53.0 % Mean Corpuscular Volume 96.0 80.0-100.0 fL Mean Corpuscular Hemoglobin 30.5 28.0-32.0 pg Mean Corpuscular Hemoglobin Concent 31.8 L 32.0-36.0 g/dL Red Cell Distribution Width 15.6 H 11.8-14.3 % Platelet Count 190 140-450 10^3/uL Mean Platelet Volume 8.5 6.9-10.8 fL Neutrophils (%) (Auto) 86.3 H 37.0-80.0 % Lymphocytes (%) (Auto) 6.0 L 10.0-50.0 % Monocytes (%) (Auto) 7.3 0.0-12.0 % Eosinophils (%) (Auto) 0.1 0.0-7.0 % Basophils (%) (Auto) 0.3 0.0-2.0 % Neutrophils # (Auto) 10.0 H 1.6-8.6 10 ^3/uL Lymphocytes # (Auto) 0.7 0.4-5.4 10 ^3/uL Monocytes # (Auto) 0.8 0-1.3 10 ^3/uL Eosinophils # (Auto) 0 0-0.8 10 ^3/uL Basophils # (Auto) 0 0-0.2 10 ^3/uL Nucleated Red Blood Cells 0.0 % Prothrombin Time 11.2 9.3-11.8 sec Prothrombin Time INR 1.06 0.9-1.15 Sodium Level 138 136-145 mmol/L Potassium Level 3.8 3.5-5.1 mmol/L Chloride Level 104 98-107 mmol/L Carbon Dioxide Level 26 20-31 mmol/L Anion Gap 8 5-15 Blood Urea Nitrogen 9 9-23 mg/dL Creatinine 0.75 0.700-1.30 mg/dL Glomerular Filtration Rate Calc 91 >90 mL/min BUN/Creatinine Ratio 12.0 10.0-20.0 Serum Glucose 106 74-106 mg/dL Calcium Level 9.0 8.7-10.4 mg/dL Total Bilirubin 0.9 0.2-1.0 mg/dL Aspartate Amino Transferase (AST) 17 13-40 U/L Alanine Aminotransferase (ALT) 12 7-40 U/L Alkaline Phosphatase 81 46-116 U/L Total Protein 6.2 5.7-8.2 g/dL Albumin 3.5 3.2-4.8 g/dL CLINICAL INDICATION: pain TECHNIQUE: XY R HIP COMPLETE XRAY Comparison: None FINDINGS/IMPRESSION: : Comminuted and angulated intertrochanteric fracture of the right proximal femur. Assessment/Plan Assessment/Plan Assessment Right hip pain due to comminuted and angulated intertrochanteric fracture of right proximal femur status post fall Leukocytosis ? PVD History of CAD status post PTCA History of hypertension History of hyperlipidemia History of dementia History of hernia repair History of tonsillectomy History of CHF Plan Admit to tele for monitoring Diet IV antibiotics-ceftriaxone PT/INR Right hip x-ray UA Chest x-ray ordered EKG ordered Ultrasound bilateral lower extremity venous Ortho consult Hep-Lock DVT prophylaxis patient on Plavix PUD prophylaxis not indicated no history of GERD Discussed plan of care with patient and nurse Home medications reconciled DCP back to SNF when appropriate Plan discussed with: Patient, Other My Orders Orders - THOM FELIZ DIRECTOR INPATIENT HEADACHE PROGRAM Procedure Category Date Status Time Urinalysis LAB 11/11/24 Transmitted 13:37 Chest Xray 1 View XY 11/11/24 Transmitted 13:37 Ceftriaxone Ivpb PHA 11/11/24 Transmitted Rocephin 13:45 Ceftriaxone Ivpb PHA 11/12/24 Transmitted Rocephin 09:00 Electrocardigram EKG 11/11/24 Transmitted 13:37 Bilat Lower Dvt US 11/11/24 Transmitted 13:37 * Orthopedic Consult CONS 11/11/24 Transmitted 13:37 Admit ADMIT 11/11/24 Transmitted 13:37 Allergies ALICIA 11/11/24 Transmitted 13:37 Code Status CODE 11/11/24 Transmitted 13:37 Hydrocodone-Acet PHA 11/11/24 Transmitted 5/325mg Tab ([place] 13:45 Ondansetron Hcl PHA 11/11/24 Transmitted (Zofran) 13:45 Complete Blood Count LAB 11/12/24 Verified 04:00 Comprehensive LAB 11/12/24 Verified Metabolic Panel 04:00 Cardiac DIET 11/11/24 Transmitted Diet-2gna,Lofat,Lochol Dinner Enoxaparin Sodium PHA 11/12/24 Transmitted (Lovenox) 10:00 Acetaminophen Tablet PHA 11/11/24 Transmitted (Tylenol Tablet) 13:45 Cilostazol (Pletal) PHA 11/11/24 Transmitted 22:00 Clopidogrel Bisulfate PHA 11/12/24 Transmitted (Plavix) 10:00 Furosemide Tablet PHA 11/12/24 Transmitted (Lasix Tablet) 10:00 Potassium Er Tablet PHA 11/12/24 Transmitted (Klor-Con Tablet) 10:00 (Nf) Atorvastatin PHA 11/12/24 Transmitted Calcium (Lipitor) 10:00 (Nf) Doxazosin PHA 11/12/24 Transmitted Mesylate 10:00 Date of Service: Nov 11, 2024 Billing Provider: THOM FELIZ Common Visit Codes: [id number] INP/OBS CARE (HIGH) THOM FELIZ Nov 11, 2024 14:24
[2024-11-11 14:33] LABS: Urine Blood Negative /uL (Negative); Urine Clarity Clear (Clear); Urine Color Light-Yellow (Yellow); Urine Hyaline Cast FEW /lpf (0 - 2); Urine Protein, UAD Negative (Negative); Urine Specific Gravity 1.019 (1.001-1.035); Urine Squamous Epithelial Cell None Seen /hpf (<5); Urine Urobilinogen Normal (Negative); Urine WBC < 1 /HPF (0-3)
--- NOTE | 2024-11-11 14:55 | DVH ---
EXAM: US BILAT LOWER DVT Clinical History: r/o dvt Comparison: US BILAT LOWER DVT on DOS: 11/09/23, VENOUS DVT BILAT on DOS: 02/02/19 Technique: Duplex Doppler evaluation of the deep venous systems of both lower extremities from the common femora l veins to the popliteal veins including color Doppler and spectral/pulsed waveform analysis was perf ormed. Findings: No visible intraluminal venous thrombus. No evidence of incompressibility or abnormal color or spectr al Doppler flow visualized in the deep bilateral lower extremity veins. Proximal greater saphenous ve ins are grossly unremarkable. Impression: 1. No sonographic evidence of deep venous thrombosis throughout the bilateral lower extremities from the popliteal veins to the common femoral veins.
--- NOTE | 2024-11-11 14:58 | DVH ---
CHEST RADIOGRAPH Indication: Pneumonia Technique: Single frontal view of the chest was obtained COMPARISON: XY CHEST PORTABLE on DOS: 08/02/24, XY CHEST PORTABLE on DOS: 11/15/23, XY CHEST PORTABLE o n DOS: 11/12/23, XY CHEST PORTABLE on DOS: 11/09/23 FINDINGS: Lines and Tubes: Median sternotomy Lungs: Clear Pleura: No effusion. No pneumothorax. Cardiomediastinal contours: Cardiomegaly Bones: Unremarkable IMPRESSION: No acute disease.
[2024-11-11] MEDS: LORazepam 2MG/ML-1ML VIAL IV ONE (15:36)
[2024-11-11] MEDS: HYDROcodone-ACET 5/325MG TAB PO PRN (18:10)
[2024-11-11 19:30] VITALS: PULSE 101; RESP 15; O2SAT 95
[2024-11-11 21:41] VITALS: BP 121/66; PULSE 84; RESP 18; TEMP 97.9; O2SAT 93
[2024-11-11] MEDS: ATORVASTATIN 20 MG TAB PO SCH (22:06)
[2024-11-12] VITALS (8 sets, daily range): BP systolic 80–118; BP diastolic 39–61; PULSE 79–106; RESP 16–20; TEMP 97.8–98.6; O2SAT 90–98
--- NOTE | 2024-11-12 00:38 | ECG ---
[facility] Test Date: 2024-11-11 Test Time: 22:41:40 Pat Name: SHANA PARISI Department: ER Room: 0297T A Gender: M Supervisor Metal Hanging: ER : 1945 Requested By: THOM FELIZ Order Number: [id number] Reading MD: Gavin Ramirez Measurements Intervals [place] Rate: 82 P: 75 OR: 118 QRS: -54 QRSD: 114 T: 64 QT: 394 QTc: 461 Interpretive Statements Sinus rhythm Paired ventricular premature complexes Borderline short OR interval LAD, consider left anterior fascicular block ST elevation, consider inferior injury Baseline wander in lead(s) V4,V5 Electronically Signed On 11-13-2024 19:13:36 PDT by Gavin Ramirez Please click the below link to view image of tracing.
[2024-11-12] MEDS: CILOSTAZOL 100 MG TAB PO SCH (00:54)
[2024-11-12 06:47] LABS: Basophils # (auto) 0.1 10 ^3/uL (0-0.2); Basophils % (auto) 0.6 % (0.0-2.0); Eosinophils # (auto) 0 10 ^3/uL (0-0.8); Eosinophils % (auto) 0.1 % (0.0-7.0); Hematocrit 34.9 % (41.0-53.0); Hemoglobin 11.3 g/dL (13.5-17.5); Lymphocytes # (auto) 1.1 10 ^3/uL (0.4-5.4); Lymphocytes % (auto) 11.5 % (10.0-50.0); Mean Corpuscular Hemoglobin 30.9 pg (28.0-32.0); Mean Corpuscular Hgb Conc. 32.5 g/dL (32.0-36.0); Mean Corpuscular Volume 95.1 fL (80.0-100.0); Monocytes % (auto) 10.3 % (0.0-12.0); Neutrophils # (auto) 7.6 10 ^3/uL (1.6-8.6); Neutrophils % (auto) 77.5 % (37.0-80.0); Platelet Count (auto) 182 10^3/uL (140-450); Red Blood Cells 3.66 10^6/uL (4.5-5.90); Red Cell Distribution Width 15.2 % (11.8-14.3); White Blood Cell 9.8 10^3/uL (4.4-10.8)
[2024-11-12 07:06] LABS: Alanine Aminotransferase 13 U/L (7-40); Albumin 3.2 g/dL (3.2-4.8); Alkaline Phosphatase 72 U/L (46-116); Anion Gap 7 (5-15); Aspartate Aminotransferase 19 U/L (13-40); BUN/Creatinine Ratio 13.2 (10.0-20.0); Bilirubin, Total 1.4 mg/dL (0.2-1.0); Blood Urea Nitrogen 10 mg/dL (9-23); Carbon Dioxide 27 mmol/L (20-31); Chloride 103 mmol/L (98-107); Glucose 87 mg/dL (74-106); Potassium 3.9 mmol/L (3.5-5.1); Sodium 137 mmol/L (136-145); Total Protein 5.7 g/dL (5.7-8.2)
[2024-11-12] MEDS: cefTRIAXone 1GM/50ML D5W 50 ML IV SCH (08:30)
[2024-11-12] MEDS: CLOPIDOGREL BISULFATE 75 MG TAB PO SCH (08:30)
[2024-11-12] MEDS: FUROSEMIDE 40 MG TAB PO SCH (08:31)
[2024-11-12] MEDS: POTASSIUM CHLORIDE 8 MEQ TAB PO SCH (08:32)
[2024-11-12] MEDS: DOXAZOSIN MESYL 2 MG TAB PO SCH (08:32)
[2024-11-12] MEDS ORDERED: DOXAZOSIN MESYL 2 MG TAB PO SCH (10:00)
[2024-11-12] MEDS ORDERED: DOXAZOSIN MESYLATE PO SCH (10:00)
[2024-11-12] MEDS ORDERED: PATIENTS OWN MEDICATION (Atorvastatin Calcium (Lipitor) 1 TAB) PO SCH (10:00)
[2024-11-12] MEDS ORDERED: ENOXAPARIN SOD 40 MG/0.4 ML SYRINGE SC SCH (10:00)
[2024-11-12] MEDS ORDERED: ENOXAPARIN SOD 30 MG/0.3 ML SYRINGE SC SCH (10:00)
--- NOTE | 2024-11-12 12:50 | DVHPN2 ---
Reviewed: Care Plan, H&P, Labs, Medications, Previous Orders, Radiology Changes from previous H/P or p: No Changes Musculoskeletal: other (Right hip pain) Objective Vitals Vital Signs Date Time Temp Pulse Resp B/P (MAP) Pulse Ox O2 Delivery O2 Flow Rate FiO2 11/12/24 08:32 108/58 11/12/24 08:31 97.8 94 17 95 97.8 11/12/24 08:00 Room Air* 0 21 Intake/Output Intake and Output 11/12/24 07:00 Intake Total 0 ml Balance 0 ml Intake Oral 0 ml # Voids 3 Medications Current Medications Medications Dose Ordered Sig/Elvis Route Start Time Stop Time Status Last Admin Dose Admin Ceftriaxone Sodium 50 ml @ 100 mls/hr DAILY@09 IV 11/12/24 09:00 11/12/24 08:30 100 MLS/HR Acetaminophen/ Hydrocodone Bitart 1 tab Q4HP PRN PO 11/11/24 13:45 11/12/24 08:31 1 TAB Ondansetron HCl 4 mg Q4HP PRN IV 11/11/24 13:45 Enoxaparin Sodium 30 mg DAILY SC 11/12/24 10:00 UNV Acetaminophen 650 mg Q6HP PRN PO 11/11/24 13:45 Cilostazol 100 mg BID PO 11/11/24 22:00 11/12/24 08:40 100 MG Clopidogrel Bisulfate 75 mg DAILY PO 11/12/24 10:00 11/12/24 08:30 75 MG Furosemide 40 mg DAILY PO 11/12/24 10:00 11/12/24 08:31 40 MG Potassium Chloride 8 meq DAILY PO 11/12/24 10:00 11/12/24 08:32 8 MEQ Patient Own Medication 1 tab DAILY PO 11/12/24 10:00 UNV Patient Own Medication 1 tab DAILY PO 11/12/24 10:00 UNV Atorvastatin Calcium 40 mg HS PO 11/11/24 22:00 11/11/24 22:06 40 MG Doxazosin Mesylate 4 mg DAILY PO 11/12/24 10:00 11/12/24 08:32 4 MG Laboratory Results Laboratory Tests 11/12/24 06:13 Chemistry Test 11/12/24 06:13 Albumin 3.2 g/dL (3.2-4.8) Calcium Level 9.0 mg/dL (8.7-10.4) Total Protein 5.7 g/dL (5.7-8.2) LFT Test 11/12/24 06:13 Alanine Aminotransferase (ALT) 13 U/L (7-40) Alkaline Phosphatase 72 U/L (46-116) Aspartate Amino Transferase (AST) 19 U/L (13-40) Total Bilirubin 1.4 mg/dL (0.2-1.0) H Urinalysis Test 11/11/24 14:00 Urine Color Light-yellow (Yellow) Urine Clarity Clear (Clear) Urine pH 7.0 (5.0-9.0) Urine Specific [place] 1.019 (1.001-1.035) Urine Protein Negative (Negative) Urine Ketones Negative (Negative) Urine Blood Negative /uL (Negative) Urine Nitrite Negative (Negative) Urine Bilirubin Negative (Negative) Urine Urobilinogen Normal mg/dL (Negative) Urine Leukocyte Esterase Negative /uL (Negative) Urine RBC 1 /hpf (0 - 3) Urine Microscopic WBC < 1 /HPF (0-3) Urine Squamous Epithelial Cells None seen /hpf (<5) Urine Bacteria None seen /hpf (None Seen) Urine Hyaline Casts Few /lpf (0 - 2) Urine Glucose Normal mg/dL (Normal) Labs and/or images reviewed: Labs reviewed by me, Image(s) reviewed by me Assessment/Plan Assessment/Plan Fracture right femur, orthopedic Dr Milner planning for surgery Mechanical fall Coronary artery disease status post PTCA CHF Hypertension Hypercholesterolemia Severe dementia Patient is hospice revoked Time spent 45 minutes Condition guarded Plan discussed with: Patient Date of Service: Nov 12, 2024 Billing Provider: JARROD JAFFE MD Common Visit Codes: [id number] INP/OBS CARE(HIGH) JARROD JAFFE MD Nov 12, 2024 12:50
--- NOTE | 2024-11-12 22:48 | DVHINCON2 ---
Date of service: Nov 12, 2024 Referring Physician Annia Reason for Consultation Cardiac clearance History of Present Illness This is an 79 year old male with a PMH of CAD status post PTCA, hypertension, hyperlipidemia, dementia, CHF, hernia repair, and tonsillectomy who was transferred to [facility] from [facility]. EMS states, patient was transferred here due to a fall resulting in right hip fracture. Right hip x-ray showed a comminuted and angulated intertrochanteric fracture of the right proximal femur. Chest x-ray shows NAD. EKG is NSR at 82. Patient was admitted to the hospital. I am asked to consult on this patient. Family History: Diabetes mellitus G8 MOTHER Allergies: Coded Allergies: NO KNOWN ALLERGIES (Unverified , 09/14/18) Home Meds Reported Medications Sertraline Hcl (Sertraline Hcl) 100 Mg Tab, 1 DAILY 11/11/24 Doxazosin Mesylate (Doxazosin Mesylate) 4 Mg Tab, 1 TAB PO DAILY 11/12/23 Atorvastatin Calcium (Lipitor) 40 Mg Tab, 1 TAB PO DAILY 11/12/23 Aspirin (Aspir-Low) 81 Mg Tab, 81 MG PO DAILY for 30 Days, MG 11/09/23 Potassium Chloride (Klor-Con 8) 8 Meq Tab, 1 TAB PO DAILY 11/09/23 Clopidogrel Bisulfate (CLOPIDOGREL) 75 Mg Tab, 1 TAB PO DAILY 11/09/23 Furosemide (Furosemide) 40 Mg Tab, 1 TAB PO DAILY 11/09/23 Oxycodone W/ Acetaminophen (Apap/Oxycodone) 1 Tab Tab, 1 TAB PO Q6HPRN, TAB 09/15/18 Cilostazol (Cilostazol) 100 Mg Tab, 100 MG PO BID, MG 09/15/18 Current Medications Current Medications Medications (Trade) Dose Ordered Sig/Elvis Route PRN Reason Start Time Stop Time Status Last Admin Ceftriaxone Sodium 50 ml @ 100 mls/hr DAILY@09 IV 11/12/24 09:00 11/12/24 08:30 Enoxaparin Sodium (Lovenox) 30 mg DAILY SC 11/12/24 10:00 UNV Clopidogrel Bisulfate (Plavix) 75 mg DAILY PO 11/12/24 10:00 11/12/24 12:51 DC 11/12/24 08:30 Furosemide (Lasix Tablet) 40 mg DAILY PO 11/12/24 10:00 11/12/24 08:31 Potassium Chloride (Klor-Con Tablet) 8 meq DAILY PO 11/12/24 10:00 11/12/24 08:32 Patient Own Medication 1 tab DAILY PO 11/12/24 10:00 UNV Patient Own Medication 1 tab DAILY PO 11/12/24 10:00 UNV Enoxaparin Sodium (Lovenox) 40 mg DAILY SC 11/12/24 10:00 11/11/24 14:23 DC Doxazosin Mesylate (Cardura Tablet) 2 mg DAILY PO 11/12/24 10:00 11/11/24 14:10 DC Doxazosin Mesylate (Cardura Tablet) 4 mg DAILY PO 11/12/24 10:00 11/12/24 08:32 Review of Systems Unable to Obtain due to: Dementia Vital Signs Vital Signs Date Time Temp Pulse Resp B/P (MAP) Pulse Ox O2 Delivery O2 Flow Rate FiO2 11/12/24 21:00 98.6 100 18 92/41 (58) 98 98.6 11/12/24 20:00 Room Air* 0 21 Physical Exam GENERAL: Awake, alert, oriented. LUNGS: Clear. CARDIOVASCULAR: Heart sounds are good. ABDOMEN: Soft. EXT: Right proximal femur/hip ttp, unable to lift RLE up against gravity. bilateral feet/ankles iwth normal ROM. Labs/Diagnostic Data Labs Test 11/12/24 06:13 11/11/24 14:00 11/11/24 11:54 Range/Units White Blood Count 9.8 4.4-10.8 10^3/uL Red Blood Count 3.66 L 4.5-5.90 10^6/uL Hemoglobin 11.3 L 13.5-17.5 g/dL Hematocrit 34.9 #L 41.0-53.0 % Mean Corpuscular Volume 95.1 80.0-100.0 fL Mean Corpuscular Hemoglobin 30.9 28.0-32.0 pg Mean Corpuscular Hemoglobin Concent 32.5 32.0-36.0 g/dL Red Cell Distribution Width 15.2 H 11.8-14.3 % Platelet Count 182 140-450 10^3/uL Mean Platelet Volume 9.0 6.9-10.8 fL Neutrophils (%) (Auto) 77.5 37.0-80.0 % Lymphocytes (%) (Auto) 11.5 10.0-50.0 % Monocytes (%) (Auto) 10.3 0.0-12.0 % Eosinophils (%) (Auto) 0.1 0.0-7.0 % Basophils (%) (Auto) 0.6 0.0-2.0 % Neutrophils # (Auto) 7.6 1.6-8.6 10 ^3/uL Lymphocytes # (Auto) 1.1 0.4-5.4 10 ^3/uL Monocytes # (Auto) 1.0 0-1.3 10 ^3/uL Eosinophils # (Auto) 0 0-0.8 10 ^3/uL Basophils # (Auto) 0.1 0-0.2 10 ^3/uL Nucleated Red Blood Cells 0.0 % Sodium Level 137 136-145 mmol/L Potassium Level 3.9 3.5-5.1 mmol/L Chloride Level 103 98-107 mmol/L Carbon Dioxide Level 27 20-31 mmol/L Anion Gap 7 5-15 Blood Urea Nitrogen 10 9-23 mg/dL Creatinine 0.76 0.700-1.30 mg/dL Glomerular Filtration Rate Calc 90 >90 mL/min BUN/Creatinine Ratio 13.2 10.0-20.0 Serum Glucose 87 74-106 mg/dL Calcium Level 9.0 8.7-10.4 mg/dL Total Bilirubin 1.4 H 0.2-1.0 mg/dL Aspartate Amino Transferase (AST) 19 13-40 U/L Alanine Aminotransferase (ALT) 13 7-40 U/L Alkaline Phosphatase 72 46-116 U/L Total Protein 5.7 5.7-8.2 g/dL Albumin 3.2 3.2-4.8 g/dL Urine Color Light-yellow Yellow Urine Clarity Clear Clear Urine pH 7.0 5.0-9.0 Urine Specific [place] 1.019 1.001-1.035 Urine Protein Negative Negative Urine Ketones Negative Negative Urine Blood Negative Negative /uL Urine Nitrite Negative Negative Urine Bilirubin Negative Negative Urine Urobilinogen Normal Negative mg/dL Urine Leukocyte Esterase Negative Negative /uL Urine RBC 1 0 - 3 /hpf Urine Microscopic WBC < 1 0-3 /HPF Urine Squamous Epithelial Cells None seen <5 /hpf Urine Bacteria None seen None Seen /hpf Urine Hyaline Casts Few 0 - 2 /lpf Urine Glucose Normal Normal mg/dL Prothrombin Time 11.2 9.3-11.8 sec Prothrombin Time INR 1.06 0.9-1.15 Assessment Fracture right femur. Mechanical fall. Coronary artery disease status post PTCA. CHF. Hypertension. Hypercholesterolemia. Severe dementia. Plan/Recommendation I agree with your ongoing assessment and care of plan. Telemetry reviewed. Patient is cardiac cleared for surgery. Echocardiogram. [place] for pain management. Lipitor. IV antibiotics as ordered. Diuretics with Lasix. Additional plan as per the hospital course. A total of 45 minutes was spent reviewing the patient record, examining the patient, making a diagnostic and therapeutic plan, discussing this plan with medical personnel, following up on diagnostic studies and following the patient for clinical stability excluding any and all procedures. At least 50% of this time was spent in direct, [id number] contact. Plan discussed with: Patient ANDRÉS MCGRAW MD Nov 12, 2024 22:37
[2024-11-13] VITALS (10 sets, daily range): BP systolic 75–128; BP diastolic 33–95; PULSE 68–103; RESP 11–20; TEMP 97.1–98.7; O2SAT 92–100
[2024-11-13] MEDS: ceFAZolin 1GM/50ML 100 ML IV ONE (06:12)
[2024-11-13] MEDS ORDERED: GLYCOPYRROLATE 0.2 MG/ML 1ML VIAL ONE (06:23)
[2024-11-13] MEDS ORDERED: MIDAZOLAM HCL 2MG/2ML 2ml VIAL (1mg/ml) ONE (06:23)
[2024-11-13] MEDS ORDERED: PROPOFOL 10 MG/ML 20 ML IV ONE (06:23)
[2024-11-13] MEDS ORDERED: ONDANSETRON HCL 4 MG/2 ML VIAL ONE (06:23)
[2024-11-13] MEDS ORDERED: KETAMINE 50mg/ML 1ml syringe ONE (06:23)
[2024-11-13] MEDS: TRANEXAMIC ACID 10 ML ONE (06:35)
[2024-11-13] MEDS ORDERED: fentaNYL CITRATE 100 MCG/2 ML VL ONE (06:57)
[2024-11-13] MEDS ORDERED: HYDROmorphone HCL 2 MG/ML VL/or syr IV PRN (07:45)
[2024-11-13] MEDS: BUPIVACAINE 0.25% INJ 50ML VIAL ONE (08:00)
[2024-11-13] MEDS: LIDOCAINE 1% HCL (LOCAL ANESTH.) INJ 20ML MDV ONE (08:00)
--- NOTE | 2024-11-13 08:31 | DVHOP2 ---
Operative Report - 2 Report Details Date: 11/13/24 Preop Diagnosis: Right hip intertrochanter fracture Postop Diagnosis: Right hip intertrochanter fracture Surgeon: Niall Milner MD Anesthesiologist: Yayo POPE Anesthesia: Mac, Local Implant: ITS short troch nail lag screw + set screw 110/100/35 distal locking screw Consent: The patient was informed of the risks and benefits of the procedure. These include but are not limited to complications of anesthesia, postoperative infection, incomplete relief of symptoms, recurrence of symptoms, damage to blood vessels, nerves and tendons, deep venous thrombosis, pulmonary embolism and possible need for repeat surgery in the future. Estimated Blood Loss: 100 cc Name of Procedure Performed Open reduction internal fixation of right hip fracture, intraoperative fluoroscopy Procedure Details Procedure Details: In the preoperative holding area, the consent was reviewed and the appropriate extremity was verified by the patient and marked with my initials. The patient was then transferred to the operating theatre. Patient was placed on a fracture table. Appropriate anesthetia was induced. All bony prominences were well padded. A time out was performed verifying the side and site of surgery accordi ng to standard protocol. Preoperative antibiotics were given. The extremity was then prepped and draped in the usual sterile fashion. Using c-arm, the fracture was reduced using the fracture table and a combination of maneuvers including traction, internal rotation, and flexion. An incision was made over the greater trochanter confirming correct position with c-arm. A guide wire was drilled into the tip of the greater trochanter, centered A to P. We used the starting reamer to gain entry to the femoral canal. A short nail was then placed. A guide pin was then drilled in the center of the femoral head confirmed using fluoroscopy. We measured the screw lengths. Using a cannulated drill, we drilled the lateral cortex. The screws were then introduced. Once positioned, we once again confirmed that the screws were with the femoral head. Attention was turned distally. We used the targeting device to drill through the nail and the femur. This was measured using the device, and the screw was placed with good purchase. Final xrays were taken showing the hardware in perfect position. The wound was copiously irrigated. No fractures were seen on the rest of the femur. The fascia was closed with #1 Vicryl, the skin closed #2-0 Vicryl, and nicol. A dry sterile dressing was placed on the patient. The patient was transferred to the recovery room in stable condition. Condition Fair Disposition Still a Patient NIALL MILNER MD Nov 13, 2024 08:31
--- NOTE | 2024-11-13 09:08 | DVH ---
EXAM: XR Right Hip With Pelvis When Performed, 2 or 3 Views CLINICAL INDICATION: R ORIF HIP TECHNIQUE: Two or three views of the right hip with pelvis when performed. COMPARISON: None FINDINGS: BONES/JOINTS: 3 spot images. Intramedullary willie fixation fixation. Into the femoral head. Total fluoroscopy time 32 seconds. Total radiation dose 5.1 mGy. No acute fracture. No dislocation. SOFT TISSUES: Unremarkable. OTHER FINDINGS: . IMPRESSION: Fluoroscopic guided images were used intraoperatively as above. Please refer to the operative note f or further details.
--- NOTE | 2024-11-13 10:07 | DVH ---
EXAM: XY C ARM FLUOROSCOPY UP TO 60MIN HISTORY: R ORIF HIP FINDINGS: Fluoroscopy was provided for an intraoperative procedure. 5 images were obtained. 32 seconds of flu oroscopic time was utilized. Cumulative radiation dose was reported at 5.1 mGy. IMPRESSION: 1. Fluoroscopy was provided for operative guidance. Please refer to the operative report for detaile d information.
--- NOTE | 2024-11-13 11:17 | DVHPN2 ---
Reviewed: Care Plan, H&P, Labs, Medications, Previous Orders, Radiology Changes from previous H/P or p: No Changes Musculoskeletal: other (Right hip pain) Objective Vitals Vital Signs Date Time Temp Pulse Resp B/P (MAP) Pulse Ox O2 Delivery O2 Flow Rate FiO2 11/13/24 09:20 97.1 68 11 115/55 (75) 99 97.1 11/13/24 09:17 Nasal Cannula 2.0 98 Intake/Output Intake and Output 11/13/24 07:00 Intake Total 610 ml Balance 610 ml Intake Oral 560 ml IV Total 50 ml # Voids 4 Medications Current Medications Medications Dose Ordered Sig/Elvis Route Start Time Stop Time Status Last Admin Dose Admin Ceftriaxone Sodium 50 ml @ 100 mls/hr DAILY@09 IV 11/12/24 09:00 11/12/24 08:30 100 MLS/HR Acetaminophen/ Hydrocodone Bitart 1 tab Q4HP PRN PO 11/11/24 13:45 11/12/24 21:56 1 TAB Ondansetron HCl 4 mg Q4HP PRN IV 11/11/24 13:45 Enoxaparin Sodium 30 mg DAILY SC 11/12/24 10:00 UNV Acetaminophen 650 mg Q6HP PRN PO 11/11/24 13:45 Cilostazol 100 mg BID PO 11/11/24 22:00 11/12/24 08:40 100 MG Furosemide 40 mg DAILY PO 11/12/24 10:00 11/12/24 08:31 40 MG Potassium Chloride 8 meq DAILY PO 11/12/24 10:00 11/12/24 08:32 8 MEQ Patient Own Medication 1 tab DAILY PO 11/12/24 10:00 UNV Patient Own Medication 1 tab DAILY PO 11/12/24 10:00 UNV Atorvastatin Calcium 40 mg HS PO 11/11/24 22:00 11/12/24 21:19 40 MG Doxazosin Mesylate 4 mg DAILY PO 11/12/24 10:00 11/12/24 08:32 4 MG Cefazolin Sodium 50 ml @ 100 mls/hr Q8HR IV 11/13/24 14:00 11/14/24 06:29 Laboratory Results Laboratory Tests 11/12/24 06:13 Urinalysis Test 11/11/24 14:00 Urine Color Light-yellow (Yellow) Urine Clarity Clear (Clear) Urine pH 7.0 (5.0-9.0) Urine Specific [employer] 1.019 (1.001-1.035) Urine Protein Negative (Negative) Urine Ketones Negative (Negative) Urine Blood Negative /uL (Negative) Urine Nitrite Negative (Negative) Urine Bilirubin Negative (Negative) Urine Urobilinogen Normal mg/dL (Negative) Urine Leukocyte Esterase Negative /uL (Negative) Urine RBC 1 /hpf (0 - 3) Urine Microscopic WBC < 1 /HPF (0-3) Urine Squamous Epithelial Cells None seen /hpf (<5) Urine Bacteria None seen /hpf (None Seen) Urine Hyaline Casts Few /lpf (0 - 2) Urine Glucose Normal mg/dL (Normal) Labs and/or images reviewed: Labs reviewed by me, Image(s) reviewed by me Assessment/Plan Assessment/Plan Fracture right femur, status post ORIF by Dr. Milner 11-12-24 Mechanical fall Coronary artery disease status post PTCA CHF Hypertension Hypercholesterolemia Severe dementia Patient is hospice revoked Time spent 45 minutes Condition guarded Plan discussed with: Patient My Orders Orders - JARROD JAFFE MD Procedure Category Date Status Time * Dietary Consult CONS 11/12/24 Transmitted 15:16 Cleanse Wound With ALICIA 11/12/24 In Process Wound Clean 11:50 Date of Service: Nov 13, 2024 Billing Provider: JARROD JAFFE MD Common Visit Codes: [id number] INP/OBS CARE(HIGH) JARROD JAFFE MD Nov 13, 2024 11:17
[2024-11-13] MEDS: ENOXAPARIN SOD 40 MG/0.4 ML SYRINGE SC ONE (11:30)
[2024-11-13] MEDS: ceFAZolin 1GM/50ML 50 ML IV SCH (13:44)
[2024-11-13 19:24] LABS: COVID19 ANTIGEN SOFIA FIA NEGATIVE (NEGATIVE)
[2024-11-13] MEDS ORDERED: MORPHINE SULFATE INJ 2 MG/ml SYRG IV PRN (19:30)
[2024-11-13] MEDS: ACETAMINOPHEN 325 MG TAB PO PRN (20:35)
--- NOTE | 2024-11-13 22:16 | DVHPN2 ---
Progress Note - Dictate Date Seen: Nov 13, 2024 Medical Necessity Reason Pt with a Central, PICC or Fol: No Subjective Patient was seen and evaluated in follow up. Patient is s/p open reduction internal fixation of right hip fracture and tolerated the procedure well. Patient complains of pain at the surgical site. Covid swab is negative. MRSA is negative. Telemetry reviewed. vital signs Vital Sign Date Time Temp Pulse Resp B/P (MAP) Pulse Ox O2 Delivery O2 Flow Rate FiO2 11/13/24 17:00 97.8 83 18 107/55 (72) 94 97.8 11/13/24 09:17 Nasal Cannula 2.0 98 Total Intake and Output 11/12/24 11/12/24 11/13/24 15:00 23:00 07:00 Intake Total 50 ml 360 ml 200 ml Balance 50 ml 360 ml 200 ml medications Current Medications Medications Dose Ordered Sig/Elvis Route Start Time Stop Time Status Last Admin Dose Admin Acetaminophen/ Hydrocodone Bitart 1 tab Q4HP PRN PO 11/11/24 13:45 11/13/24 17:54 1 TAB Ondansetron HCl 4 mg Q4HP PRN IV 11/11/24 13:45 Enoxaparin Sodium 30 mg DAILY SC 11/12/24 10:00 UNV Acetaminophen 650 mg Q6HP PRN PO 11/11/24 13:45 Cilostazol 100 mg BID PO 11/11/24 22:00 11/12/24 08:40 100 MG Furosemide 40 mg DAILY PO 11/12/24 10:00 11/12/24 08:31 40 MG Potassium Chloride 8 meq DAILY PO 11/12/24 10:00 11/12/24 08:32 8 MEQ Patient Own Medication 1 tab DAILY PO 11/12/24 10:00 UNV Patient Own Medication 1 tab DAILY PO 11/12/24 10:00 UNV Atorvastatin Calcium 40 mg HS PO 11/11/24 22:00 11/12/24 21:19 40 MG Doxazosin Mesylate 4 mg DAILY PO 11/12/24 10:00 11/12/24 08:32 4 MG Cefazolin Sodium 50 ml @ 100 mls/hr Q8HR IV 11/13/24 14:00 11/14/24 06:29 11/13/24 17:55 100 MLS/HR Enoxaparin Sodium 40 mg DAILY SC 11/14/24 10:00 Morphine Sulfate 2 mg Q8HP PRN IV 11/13/24 19:30 objective GENERAL: Awake, alert, oriented. LUNGS: Clear. CARDIOVASCULAR: Heart sounds are good. ABDOMEN: Soft. EXT: Right proximal femur/hip ttp, unable to lift RLE up against gravity. bilateral feet/ankles iwth normal ROM. laboratory and microbiology Laboratory Tests 11/12/24 06:13 Test 11/12/24 06:13 Range/Units Serum Glucose 87 74-106 mg/dL Problem List Fracture right femur. Mechanical fall. Coronary artery disease status post PTCA. CHF. Hypertension. Hypercholesterolemia. Severe dementia. Assessment/Plan Continued all current supportive medical care. Echocardiogram. [place] for pain management. Lipitor. IV antibiotics as ordered. Diuretics with Lasix. Additional plan as per the hospital course. Dietary Evaluation Review Comments: 1) Iniate Ensure Enlive bid; promote optimal PO intake 2) Iniate Darron @ 1 pk qd 3) Initiate multivitamin @ 1 tb qd; vitamin C @ 500 mg bid; and zinc sulfate @ 220 mg qd for 7-10 days before reassessing renal function 4) Follow-up with surgeon and PT/OT Expected Outcomes/Goals: 1) labs and apptite to improve 2) wound to improve 3) f/u in 5 days Plan discussed with: Patient ANDRÉS MCGRAW MD Nov 13, 2024 20:20
[2024-11-14] VITALS (9 sets, daily range): BP systolic 84–104; BP diastolic 40–62; PULSE 61–102; RESP 17–20; TEMP 97.8–98.5; O2SAT 94–99
--- NOTE | 2024-11-14 00:54 | DVHSR ---
APPROVED REPORT EXAM: Two-dimensional and M-mode echocardiogram with Doppler and color Doppler. Blood Pressure: 108/58 mmHg INDICATION CAD RISK FACTORS Height: 66, Weight: 145 DIMENSIONS LVDd4.3 (3.8-5.7cm)LA (2D)3.9 (1.9-4.0cm)Aortic Root3.7 (2.0-3.7cm) LVDs3.2 (2.5-4.0cm)LA (MM) (1.9-4.0cm)Aortic Cusp Exc0.6 (1.5-2.0cm) EF (%) 52.0 (55-70%)Rt. Atrium3.9 (1.9-4.0cm)Asc. Aorta cm Mitral Valve MitralMitral Stenosis E wave0.63m/sMV Mean GR.mmHg A wave0.89m/sMV Peak GR.mmHg E/A ratio0.72D MVAcm2 DECEL [id number] 1/2 [place] Aortic Valve Aortic ValveAortic Stenosis V11.25m/Kevin Mean GR.14mmHg V22.90m/Kevin Peak GR.34mmHg LVOT Diameter2.3 (1.8-2.4cm)Doppler AVA1.79cm2 Pulmonic Valve V21.51m/s Tricuspid Valve TR Velocity2.40m/s [id number] Other Information Technically limited study due to body habitus, patient position. Patient was unable to turn on his s william due to right femur fracture. Conclusion MODERATE DEGREE LVH AND MODERATE DEGREE LV DIASTOLIC DYSFUNCTION LV EF IS 70% very heavily calcified aortic leaflets WITH DECREASED EXCURSON AORTIC VALVE AREA IS IN IN RANGE OF 1.5 CM SQUARE MODERATE DEGREE AORTIC STENOSIS MODERATELY DILATED LA MODERATE DEGREE PULMONARY HYPERTENSION NORMAL RV FUNCTION NO EFFUSION
[2024-11-14] MEDS: ENOXAPARIN SOD 40 MG/0.4 ML SYRINGE SC SCH (10:07)
--- NOTE | 2024-11-14 11:41 | DVHPN2 ---
Reviewed: Care Plan, H&P, Labs, Medications, Previous Orders, Radiology Changes from previous H/P or p: No Changes Musculoskeletal: other (Right hip pain) Objective Vitals Vital Signs Date Time Temp Pulse Resp B/P (MAP) Pulse Ox O2 Delivery O2 Flow Rate FiO2 11/14/24 10:07 98/42 11/14/24 09:00 98.0 102 18 95 98.0 11/14/24 08:00 Room Air* 0 21 Intake/Output Intake and Output 11/14/24 07:00 Intake Total 630 ml Balance 630 ml Intake Oral 480 ml IV Total 150 ml # Voids 3 Medications Current Medications Medications Dose Ordered Sig/Elvis Route Start Time Stop Time Status Last Admin Dose Admin Acetaminophen/ Hydrocodone Bitart 1 tab Q4HP PRN PO 11/11/24 13:45 11/14/24 10:05 1 TAB Ondansetron HCl 4 mg Q4HP PRN IV 11/11/24 13:45 Enoxaparin Sodium 30 mg DAILY SC 11/12/24 10:00 UNV Acetaminophen 650 mg Q6HP PRN PO 11/11/24 13:45 11/13/24 20:35 650 MG Cilostazol 100 mg BID PO 11/11/24 22:00 11/14/24 10:05 100 MG Furosemide 40 mg DAILY PO 11/12/24 10:00 11/14/24 10:06 40 MG Potassium Chloride 8 meq DAILY PO 11/12/24 10:00 11/14/24 10:06 8 MEQ Patient Own Medication 1 tab DAILY PO 11/12/24 10:00 UNV Patient Own Medication 1 tab DAILY PO 11/12/24 10:00 UNV Atorvastatin Calcium 40 mg HS PO 11/11/24 22:00 11/13/24 21:28 40 MG Doxazosin Mesylate 4 mg DAILY PO 11/12/24 10:00 11/14/24 10:07 4 MG Enoxaparin Sodium 40 mg DAILY SC 11/14/24 10:00 11/14/24 10:07 40 MG Morphine Sulfate 2 mg Q8HP PRN IV 11/13/24 19:30 Laboratory Results Laboratory Tests 11/12/24 06:13 Urinalysis Test 11/11/24 14:00 Urine Color Light-yellow (Yellow) Urine Clarity Clear (Clear) Urine pH 7.0 (5.0-9.0) Urine Specific [place] 1.019 (1.001-1.035) Urine Protein Negative (Negative) Urine Ketones Negative (Negative) Urine Blood Negative /uL (Negative) Urine Nitrite Negative (Negative) Urine Bilirubin Negative (Negative) Urine Urobilinogen Normal mg/dL (Negative) Urine Leukocyte Esterase Negative /uL (Negative) Urine RBC 1 /hpf (0 - 3) Urine Microscopic WBC < 1 /HPF (0-3) Urine Squamous Epithelial Cells None seen /hpf (<5) Urine Bacteria None seen /hpf (None Seen) Urine Hyaline Casts Few /lpf (0 - 2) Urine Glucose Normal mg/dL (Normal) Microbiology Microbiology Date/Time Source Procedure Growth Status 11/12/24 00:50 Nose MRSA Screen - Final Complete Labs and/or images reviewed: Labs reviewed by me, Image(s) reviewed by me Assessment/Plan Assessment/Plan Fracture right femur, status post ORIF by Dr. Milner 11-12-24 Mechanical fall Coronary artery disease status post PTCA CHF Hypertension Hypercholesterolemia Severe dementia Dehydration: NS 150 mL/hours Patient is hospice revoked Time spent 45 minutes Condition guarded Granddaughter Nacho [phone] bedside and agreeable for the plan to discharge to correction facility for rehab Plan discussed with: Patient My Orders Orders - JARROD JAFFE MD Procedure Category Date Status Time Sodium Chloride 0.9% PHA 11/14/24 Logged 11:45 Date of Service: Nov 14, 2024 Billing Provider: JARROD JAFFE MD Common Visit Codes: [id number] INP/OBS CARE(HIGH) JARROD JAFFE MD Nov 14, 2024 11:40
[2024-11-14] MEDS: SODIUM CHLORIDE 0.9% 1,000 ML IV SCH ×2 (11:45→14:30)
[2024-11-14] MEDS ORDERED: SODIUM CHLORIDE 0.9% 1,000 ML IV SCH (14:15)
--- NOTE | 2024-11-14 19:29 | DVHPN2 ---
Progress Note - Dictate Date Seen: Nov 14, 2024 Medical Necessity Reason Pt with a Central, PICC or Fol: No Subjective Patient was seen and evaluated in follow up. No overnight events. Patient is complaining of right hip pain. The patient is receiving [place] for pain management. Telemetry reviewed. vital signs Vital Sign Date Time Temp Pulse Resp B/P (MAP) Pulse Ox O2 Delivery O2 Flow Rate FiO2 11/14/24 17:54 98.0 61 18 100/49 (66) 94 98.0 11/14/24 08:00 Room Air* 0 21 Total Intake and Output 11/13/24 11/13/24 11/14/24 15:00 23:00 07:00 Intake Total 50 ml 100 ml 480 ml Balance 50 ml 100 ml 480 ml medications Current Medications Medications Dose Ordered Sig/Elvis Route Start Time Stop Time Status Last Admin Dose Admin Acetaminophen/ Hydrocodone Bitart 1 tab Q4HP PRN PO 11/11/24 13:45 11/14/24 10:05 1 TAB Ondansetron HCl 4 mg Q4HP PRN IV 11/11/24 13:45 Enoxaparin Sodium 30 mg DAILY SC 11/12/24 10:00 UNV Acetaminophen 650 mg Q6HP PRN PO 11/11/24 13:45 11/13/24 20:35 650 MG Cilostazol 100 mg BID PO 11/11/24 22:00 11/14/24 10:05 100 MG Potassium Chloride 8 meq DAILY PO 11/12/24 10:00 11/14/24 10:06 8 MEQ Patient Own Medication 1 tab DAILY PO 11/12/24 10:00 UNV Patient Own Medication 1 tab DAILY PO 11/12/24 10:00 UNV Atorvastatin Calcium 40 mg HS PO 11/11/24 22:00 11/13/24 21:28 40 MG Enoxaparin Sodium 40 mg DAILY SC 11/14/24 10:00 11/14/24 10:07 40 MG Morphine Sulfate 2 mg Q8HP PRN IV 11/13/24 19:30 Sodium Chloride 1,000 ml @ 150 mls/hr Q6H40M IV 11/14/24 14:30 11/14/24 14:30 150 MLS/HR objective GENERAL: Awake, alert, oriented. LUNGS: Clear. CARDIOVASCULAR: Heart sounds are good. ABDOMEN: Soft. EXT: Right proximal femur/hip ttp, unable to lift RLE up against gravity. bilateral feet/ankles iwth normal ROM. laboratory and microbiology Laboratory Tests 11/12/24 06:13 Test 11/12/24 06:13 Range/Units Serum Glucose 87 74-106 mg/dL Problem List Fracture right femur. Mechanical fall. Coronary artery disease status post PTCA. CHF. Hypertension. Hypercholesterolemia. Severe dementia. Assessment/Plan Continued all current supportive medical care. Echocardiogram. [place] for pain management. Lipitor. IV antibiotics as ordered. Diuretics with Lasix. Additional plan as per the hospital course. Dietary Evaluation Review Comments: 1) Iniate Ensure Enlive bid; promote optimal PO intake 2) Iniate Darron @ 1 pk qd 3) Initiate multivitamin @ 1 tb qd; vitamin C @ 500 mg bid; and zinc sulfate @ 220 mg qd for 7-10 days before reassessing renal function 4) Follow-up with surgeon and PT/OT Expected Outcomes/Goals: 1) labs and apptite to improve 2) wound to improve 3) f/u in 5 days Plan discussed with: Patient ANDRÉS MCGRAW MD Nov 14, 2024 19:15
[2024-11-15] VITALS (7 sets, daily range): BP systolic 88–107; BP diastolic 39–57; PULSE 76–92; RESP 16–19; TEMP 98–98.8; O2SAT 92–98
--- NOTE | 2024-11-15 11:38 | DVHPN2 ---
Progress Note - Dictate Date Seen: Nov 15, 2024 Medical Necessity Reason Pt with a Central, PICC or Fol: No Subjective Patient was seen and evaluated in follow up. Patient is complaining of right hip pain. Echocardiogram shows an EF of 70%, moderate degree LVH, moderate degree LV diastolic dysfunction, aortic stenosis, moderately dilatated LA, moderate degree pulmonary HTN. Telemetry reviewed. vital signs Vital Sign Date Time Temp Pulse Resp B/P (MAP) Pulse Ox O2 Delivery O2 Flow Rate FiO2 11/15/24 09:28 98.1 79 18 100/57 (71) 98.1 11/15/24 08:00 Nasal Cannula* 2 28 11/15/24 05:00 98 Total Intake and Output 11/14/24 11/14/24 11/15/24 15:00 23:00 07:00 Intake Total 1372 ml 800 ml Output Total 250 ml Balance 1372 ml 550 ml medications Current Medications Medications Dose Ordered Sig/Elvis Route Start Time Stop Time Status Last Admin Dose Admin Acetaminophen/ Hydrocodone Bitart 1 tab Q4HP PRN PO 11/11/24 13:45 11/15/24 09:33 1 TAB Ondansetron HCl 4 mg Q4HP PRN IV 11/11/24 13:45 Enoxaparin Sodium 30 mg DAILY SC 11/12/24 10:00 UNV Acetaminophen 650 mg Q6HP PRN PO 11/11/24 13:45 11/13/24 20:35 650 MG Cilostazol 100 mg BID PO 11/11/24 22:00 11/15/24 09:34 100 MG Potassium Chloride 8 meq DAILY PO 11/12/24 10:00 11/15/24 09:33 8 MEQ Patient Own Medication 1 tab DAILY PO 11/12/24 10:00 UNV Patient Own Medication 1 tab DAILY PO 11/12/24 10:00 UNV Atorvastatin Calcium 40 mg HS PO 11/11/24 22:00 11/14/24 21:27 40 MG Enoxaparin Sodium 40 mg DAILY SC 11/14/24 10:00 11/15/24 09:34 40 MG Morphine Sulfate 2 mg Q8HP PRN IV 11/13/24 19:30 Sodium Chloride 1,000 ml @ 150 mls/hr Q6H40M IV 11/14/24 14:30 11/15/24 09:35 150 MLS/HR objective GENERAL: Awake, alert, oriented. LUNGS: Clear. CARDIOVASCULAR: Heart sounds are good. ABDOMEN: Soft. EXT: Right proximal femur/hip ttp, unable to lift RLE up against gravity. bilateral feet/ankles iwth normal ROM. laboratory and microbiology Laboratory Tests 11/12/24 06:13 Test 11/12/24 06:13 Range/Units Serum Glucose 87 74-106 mg/dL Problem List Fracture right femur. Mechanical fall. Coronary artery disease status post PTCA. CHF. Hypertension. Hypercholesterolemia. Severe dementia. Pulmonary hypertension. Aortic stenosis. Assessment/Plan Continued all current supportive medical care. Morphine and [place] for pain management. Lipitor. DVT prophylactics. Additional plan as per the hospital course. Dietary Evaluation Review Comments: 1) Iniate Ensure Enlive bid; promote optimal PO intake 2) Iniate Darron @ 1 pk qd 3) Initiate multivitamin @ 1 tb qd; vitamin C @ 500 mg bid; and zinc sulfate @ 220 mg qd for 7-10 days before reassessing renal function 4) Follow-up with surgeon and PT/OT Expected Outcomes/Goals: 1) labs and apptite to improve 2) wound to improve 3) f/u in 5 days Plan discussed with: Patient ANDRÉS MCGRAW MD Nov 15, 2024 11:38
--- NOTE | 2024-11-15 13:18 | DVHPN2 ---
Reviewed: Care Plan, H&P, Labs, Medications, Previous Orders, Radiology Changes from previous H/P or p: No Changes Musculoskeletal: other (Right hip pain) Objective Vitals Vital Signs Date Time Temp Pulse Resp B/P (MAP) Pulse Ox O2 Delivery O2 Flow Rate FiO2 11/15/24 09:28 98.1 79 18 100/57 (71) 98.1 11/15/24 08:00 Nasal Cannula* 2 28 11/15/24 05:00 98 Intake/Output Intake and Output 11/15/24 07:00 Intake Total 2172 ml Output Total 250 ml Balance 1922 ml Intake Oral 1572 ml IV Total 600 ml Output Urine Total 250 ml # Voids 6 Medications Current Medications Medications Dose Ordered Sig/Elvis Route Start Time Stop Time Status Last Admin Dose Admin Acetaminophen/ Hydrocodone Bitart 1 tab Q4HP PRN PO 11/11/24 13:45 11/15/24 09:33 1 TAB Ondansetron HCl 4 mg Q4HP PRN IV 11/11/24 13:45 Enoxaparin Sodium 30 mg DAILY SC 11/12/24 10:00 UNV Acetaminophen 650 mg Q6HP PRN PO 11/11/24 13:45 11/13/24 20:35 650 MG Cilostazol 100 mg BID PO 11/11/24 22:00 11/15/24 09:34 100 MG Potassium Chloride 8 meq DAILY PO 11/12/24 10:00 11/15/24 09:33 8 MEQ Patient Own Medication 1 tab DAILY PO 11/12/24 10:00 UNV Patient Own Medication 1 tab DAILY PO 11/12/24 10:00 UNV Atorvastatin Calcium 40 mg HS PO 11/11/24 22:00 11/14/24 21:27 40 MG Enoxaparin Sodium 40 mg DAILY SC 11/14/24 10:00 11/15/24 09:34 40 MG Morphine Sulfate 2 mg Q8HP PRN IV 11/13/24 19:30 Sodium Chloride 1,000 ml @ 150 mls/hr Q6H40M IV 11/14/24 14:30 11/15/24 09:35 150 MLS/HR Laboratory Results Laboratory Tests 11/12/24 06:13 Urinalysis Test 11/11/24 14:00 Urine Color Light-yellow (Yellow) Urine Clarity Clear (Clear) Urine pH 7.0 (5.0-9.0) Urine Specific [place] 1.019 (1.001-1.035) Urine Protein Negative (Negative) Urine Ketones Negative (Negative) Urine Blood Negative /uL (Negative) Urine Nitrite Negative (Negative) Urine Bilirubin Negative (Negative) Urine Urobilinogen Normal mg/dL (Negative) Urine Leukocyte Esterase Negative /uL (Negative) Urine RBC 1 /hpf (0 - 3) Urine Microscopic WBC < 1 /HPF (0-3) Urine Squamous Epithelial Cells None seen /hpf (<5) Urine Bacteria None seen /hpf (None Seen) Urine Hyaline Casts Few /lpf (0 - 2) Urine Glucose Normal mg/dL (Normal) Microbiology Microbiology Date/Time Source Procedure Growth Status 11/12/24 00:50 Nose MRSA Screen - Final Complete Labs and/or images reviewed: Labs reviewed by me, Image(s) reviewed by me Assessment/Plan Assessment/Plan Fracture right femur, status post ORIF by Dr. Milner 11-12-24 Mechanical fall Coronary artery disease status post PTCA CHF Hypertension Hypercholesterolemia Severe dementia Dehydration: Resolved Patient is hospice revoked Time spent 45 minutes Condition guarded Granddaughter Nacho [phone] bedside and agreeable for the plan to discharge to long-term facility for rehab Plan discussed with: Patient My Orders Orders - JARROD JAFFE MD Procedure Category Date Status Time Sodium Chloride 0.9% PHA 11/14/24 In Process 14:30 Date of Service: Nov 15, 2024 Billing Provider: JARROD JAFFE MD Common Visit Codes: [id number] INP/OBS CARE(HIGH) JARROD JAFFE MD Nov 15, 2024 13:17
--- NOTE | 2024-11-15 13:23 | DVHDS2 ---
Discharge Summary Date of Admission Nov 11, 2024 at 13:37 Date of Discharge: Nov 15, 2024 Admitting Diagnosis Fracture right femur Wounds: Surgery for right femur fracture Labs/Diagnostic Data: Laboratory Results Test 11/13/24 00:00 11/12/24 06:13 11/11/24 14:00 11/11/24 11:54 SARS-CoV-2 Antigen (Rapid) Negative (NEGATIVE) White Blood Count 9.8 10^3/uL (4.4-10.8) Red Blood Count 3.66 10^6/uL (4.5-5.90) Hemoglobin 11.3 g/dL (13.5-17.5) Hematocrit 34.9 % (41.0-53.0) Mean Corpuscular Volume 95.1 fL (80.0-100.0) Mean Corpuscular Hemoglobin 30.9 pg (28.0-32.0) Mean Corpuscular Hemoglobin Concent 32.5 g/dL (32.0-36.0) Red Cell Distribution Width 15.2 % (11.8-14.3) Platelet Count 182 10^3/uL (140-450) Mean Platelet Volume 9.0 fL (6.9-10.8) Neutrophils (%) (Auto) 77.5 % (37.0-80.0) Lymphocytes (%) (Auto) 11.5 % (10.0-50.0) Monocytes (%) (Auto) 10.3 % (0.0-12.0) Eosinophils (%) (Auto) 0.1 % (0.0-7.0) Basophils (%) (Auto) 0.6 % (0.0-2.0) Neutrophils # (Auto) 7.6 10 ^3/uL (1.6-8.6) Lymphocytes # (Auto) 1.1 10 ^3/uL (0.4-5.4) Monocytes # (Auto) 1.0 10 ^3/uL (0-1.3) Eosinophils # (Auto) 0 10 ^3/uL (0-0.8) Basophils # (Auto) 0.1 10 ^3/uL (0-0.2) Nucleated Red Blood Cells 0.0 % Sodium Level 137 mmol/L (136-145) Potassium Level 3.9 mmol/L (3.5-5.1) Chloride Level 103 mmol/L (98-107) Carbon Dioxide Level 27 mmol/L (20-31) Anion Gap 7 (5-15) Blood Urea Nitrogen 10 mg/dL (9-23) Creatinine 0.76 mg/dL (0.700-1.30) Glomerular Filtration Rate Calc 90 mL/min (>90) BUN/Creatinine Ratio 13.2 (10.0-20.0) Serum Glucose 87 mg/dL (74-106) Calcium Level 9.0 mg/dL (8.7-10.4) Total Bilirubin 1.4 mg/dL (0.2-1.0) Aspartate Amino Transferase (AST) 19 U/L (13-40) Alanine Aminotransferase (ALT) 13 U/L (7-40) Alkaline Phosphatase 72 U/L (46-116) Total Protein 5.7 g/dL (5.7-8.2) Albumin 3.2 g/dL (3.2-4.8) Urine Color Light-yellow (Yellow) Urine Clarity Clear (Clear) Urine pH 7.0 (5.0-9.0) Urine Specific [place] 1.019 (1.001-1.035) Urine Protein Negative (Negative) Urine Ketones Negative (Negative) Urine Blood Negative /uL (Negative) Urine Nitrite Negative (Negative) Urine Bilirubin Negative (Negative) Urine Urobilinogen Normal mg/dL (Negative) Urine Leukocyte Esterase Negative /uL (Negative) Urine RBC 1 /hpf (0 - 3) Urine Microscopic WBC < 1 /HPF (0-3) Urine Squamous Epithelial Cells None seen /hpf (<5) Urine Bacteria None seen /hpf (None Seen) Urine Hyaline Casts Few /lpf (0 - 2) Urine Glucose Normal mg/dL (Normal) Prothrombin Time 11.2 sec (9.3-11.8) Prothrombin Time INR 1.06 (0.9-1.15) Other Laboratory Tests 11/12/24 06:13 Brief Hx & Hospital Course: 79-year-old male with a history of hypertension CHF hypercholesterolemia severe dementia coronary artery disease status post PTCA on hospice had a mechanical fall and sustained intertrochanteric fracture right femur. Underwent ORIF by 11/12/2024. Underwent physical therapy pain management and IV fluids for dehydration . Being discharged to shelter facility for rehab Patient is hospice revoked discussed the plan of shelter facility placement with the patient's granddaughter Nacho [phone] and the plan is acceptable to her. General Condition poor but stable at the time of discharge Consults/Reason for consult Orthopedic Dr Milner Operations or Procedures Right femur fracture open reduction internal fixation Condition at Discharge: Fair Final Diagnosis/Problems List Intertrochanteric fracture right femur, status post ORIF by Dr. Milner 11-12-24 Mechanical fall Coronary artery disease status post PTCA CHF Hypertension Hypercholesterolemia Severe dementia Dehydration: Resolved Patient is hospice revoked Discharge Disposition: Custodial Facility Discharge Instruct/Medications Diet: Cardiac 2g Na,low cholest Activity: See Comment Activity comment: Weight-bearing as tolerated right lower extremity Follow Up/Referral: Follow up with the residential Medications: see list 39 (Time taken for discharge summary 39 minutes) Discharge Statement: "Patient was advised to return to the ER or call 911 if any headaches, dizziness, shortness of breath, chest pain, abdominal pain, bleeding, fevers, or worsening of medical condition. Patient was counseled about treatment plan, medications, possible side effects, patientverbalized understanding. All questions were answered to the best of my ability. This discharge took greater then 30 minutes in planning, reviewing documentation, counseling the patient, and discussing with other team members." ASSESSMENT ASSESSMENT Hospital Course Status post open reduction internal fixation right femur fracture Assessment Intertrochanteric fracture right femur, status post ORIF by Dr. Milner 11-12-24 Mechanical fall Coronary artery disease status post PTCA CHF Hypertension Hypercholesterolemia Severe dementia Dehydration: Resolved Patient is hospice revoked Date of Service: Nov 15, 2024 Billing Provider: JARROD JAFFE MD Common Visit Codes: 55252-IJS/OBS DISCH DAY >30min JARROD JAFFE MD Nov 15, 2024 13:23
== END 2024-11-15 18:30 | disposition hospice, inpatient (51) | DRG 481 ==
LOC: EDBD 10:49 → ER 10:49 → OVERFLOW 13:37 → TELE-WESTW 23:00
PROVIDERS: ADMIT Family Medicine; ATTEND Family Medicine
PROC: 0QS604Z Reposition Right Upper Femur with Internal Fixation Device, Open Approach (ICD-10-PCS; principal; 2024-11-13 07:34)
DX: S72.141A Displaced intertrochanteric fracture of right femur, initial encounter for closed fracture (principal); R71.0 Precipitous drop in hematocrit; D72.829 Elevated white blood cell count, unspecified; F03.C0 Unspecified dementia, severe, without behavioral disturbance, psychotic disturbance, mood disturbance, and anxiety; I27.20 Pulmonary hypertension, unspecified; I25.10 Atherosclerotic heart disease of native coronary artery without angina pectoris; I11.0 Hypertensive heart disease with heart failure; Z20.822 Contact with and (suspected) exposure to COVID-19; E86.0 Dehydration; E78.00 Pure hypercholesterolemia, unspecified; I35.0 Nonrheumatic aortic (valve) stenosis; I50.9 Heart failure, unspecified; Z83.3 Family history of diabetes mellitus; W01.0XXA Fall on same level from slipping, tripping and stumbling without subsequent striking against object, initial encounter; Z95.1 Presence of aortocoronary bypass graft; Z98.61 Coronary angioplasty status; Y93.89 Activity, other specified; Y92.89 Other specified places as the place of occurrence of the external cause; Y99.8 Other external cause status; Z79.899 Other long term (current) drug therapy
CPT/HCPCS: 36415; 71045; 73501; 73502; 76000; 80053; 81001; 85025; 85610; 86850; 86900; 86901; 87081; 87426; 93005; 93306; 93970; 97110; 97116; 97163; G0378; J2003; J2250; J2405; J2704; J3490